=== PATIENT | male | born 1960 | race Caucasian/White ===

== ENCOUNTER 2019-07-31 23:00 | Inpatient (IN) | payer MEDICARE, MEDICAID, SELFPAY ==
[2019-07-31 23:10] VITALS: BP 130/83; PULSE 82; RESP 16; TEMP 36.8; O2SAT 94; BMI 22.4
--- NOTE | 2019-07-31 23:15 | ECG_ITS ---
Measurements Intervals [place] Rate: 84 P: 58 MI: 151 QRS: 78 QRSD: 86 T: 71 QT: 352 QTc: 416 SINUS RHYTHM POSSIBLE RIGHT VENTRICULAR CONDUCTION DELAY [RSR (QR) IN V1/V2] No previous ECG available for comparison Electronically Signed On 08-01-2019 20:53:13 CHIEF WRITER by Judi Banks M.D. [id number]
--- NOTE | 2019-07-31 23:15 | XRR_ITS ---
PROCEDURE INFORMATION: Exam: XR Chest, 1 View Exam date and time: 07/31/2019 11:35 PM Age: 58 years old Clinical indication: Chest pain TECHNIQUE: Imaging protocol: XR of the chest Views: 1 view. COMPARISON: No relevant prior studies available. FINDINGS: Lungs: There is hyperlucency in the upper lung zones compatible with COPD. Prior pulmonary granulomatous disease. Pleural space: No pleural effusion or pneumothorax. Heart/Mediastinum: The cardiac silhouette is not enlarged. The mediastinal contours are normal. Bones/joints: No acute osseous abnormality. Other findings: There is a left epicardial fat pad. XR/XR chest 1V portable [id number] IMPRESSION: COPD.
[2019-07-31 23:39] VITALS: BP 152/94; PULSE 77; RESP 16; TEMP 36.6; O2SAT 94
[2019-07-31 23:41] LABS: Basophils % 0.4 %; Eosinophils # 0.1 10^3/uL (0.0-0.8); Eosinophils % 2.4 %; Hemoglobin 14.7 g/dL (11.7-16.6); Lymphocytes # 1.8 10^3/uL (0.8-4.8); Lymphocytes % 32.7 %; Mean Corpuscular HGB Conc 33.4 g/dL (30.0-36.0); Mean Corpuscular Hemoglobin 28.9 pg (28.0-34.0); Mean Corpuscular Volume 86.6 fL (80-94); Mean Platelet Volume 11.6 fL (7.4-10.4); Monocytes # 0.3 10^3/uL (0.2-0.9); Monocytes % 4.9 %; Neutrophils # 3.3 10^3/uL (1.8-7.7); Neutrophils % 59.2 %; Nucleated Red Blood Cells % 0 %; Platelet Count 211 10^3/cmm (130-400); Red Blood Count 5.08 10^6/uL (4.1-5.3); Red Cell Distribution Width 12.1 % (12.1-15.1); White Blood Count 5.5 10^3/uL (4.0-10.0)
--- NOTE | 2019-07-31 23:43 | ED_ITS ---
HPI - Chest Pain General: Chief Complaint: Chest Pain Stated Complaint: CP Time Seen by Provider: 07/31/19 23:43 History of Present Illness: HPI narrative: Patient is a 58-year-old male comes to the ED with chest pain. He has a past medical history of diabetes, hyperlipidemia and also smokes about a half a pack a day. Patient's mother and father both had heart attacks. This is the first time he has ever experienced any chest pain and denies any shortness of breath or chest pain upon exertion before this occurrence. Patient says that chest pain started while he was sitting watching TV. He first felt the pain in his left arm and then it went to his chest. Arm pain as achy pain that was in the entire left arm. He also described a left arm tingling during the chest pain. Patient then took a dose of 325 mg aspirin. He called the EMS when they arrived they also gave him some nitroglycerin. After nitroglycerin patient's chest pain subsided and his left arm pain also significantly decreased. While here in the ED patient does not have any chest pain currently and has some mild left arm pain that he rates about 2 out of 10. He states he does have some arthritis in his wrist and hands and is unsure if mild pain in left arm is due to arthritis. He says the tingling sensation in the left arm is completely gone away. Associated symptoms: Deny abdominal pain, dyspnea, fever(s), nausea, palpitations or vomiting Review of Systems General: Reports: 10 or more systems reviewed and unremarkable except in HPI and below Const: Denies: fever or chills Eyes: Denies: change in vision or blurry vision ENMT: Denies: throat pain or nasal congestion Card: Denies: chest pain (no pain currently), palpitations, swelling of feet/ankles, shortness of breath on exertion or shortness of breath when lying down Resp: Reports: non-productive cough (chronic from smoking); Denies: shortness of breath GI: Denies: abdominal pain, nausea, vomiting, diarrhea, constipation or blood in stool : Denies: difficulty urinating, painful urination or blood in urine Neuro: Denies: numbness in extremities or weakness in extremities PFS ED PFSH: Statuses (acute, chronic, etc) shown below reflect problem list status as previously entered and may not be historically accurate Social History Smoking and tobacco status: current every day smoker Physical Exam Narrative: EXAM NARRATIVE: Patient is a 58-year-old male that is sitting comfortably in the exam room when I entered. He showing no signs of acute pain or distress. Is also showing no signs of respiratory distress. Const: COMMON NORMALS: oriented x3 HENMT: COMMON NORMALS: normocephalic HEAD & SCALP: normocephalic MOUTH: oral and palatal mucosa normal THROAT: posterior oropharynx normal and uvula midline Neck/C-Spine: COMMON NORMALS: supple GENERAL: Yes normal visual inspection Lymph: LYMPHATIC: no lymphadenopathy noted Resp: COMMON NORMALS: normal respiratory effort, no retractions, no use of accessory muscles and clear to auscultation bilaterally AUSCULTATION: clear to auscultation bilaterally Cardio: COMMON NORMALS: regular rate, regular rhythm, S1 normal heart sound, S2 normal heart sound, no gallops, no clicks, no murmurs and peripheral pulses 2+ throughout RATE: regular rate RHYTHM: regular rhythm HEART SOUNDS: S1 normal and S2 normal PERIPHERAL PULSES: pulses 2+ throughout GI: COMMON NORMALS: normal to inspection, nondistended, normoactive bowel sounds, soft to palpation, non-tender and no masses PALPATION: Yes soft : COMMON NORMALS: Yes no CVA tenderness BLADDER/KIDNEY EXAM: Yes no CVA tenderness Back/Pelvis: COMMON NORMALS: no CVA tenderness Extremity: COMMON NORMALS: normal to inspection, normal capillary refill and no pedal edema Neuro: COMMON NORMALS: oriented x3 and moves all extremities Skin: COMMON NORMALS: no rashes or lesions noted and no jaundice GENERAL SKIN EXAM: no rashes or lesions noted Course ED course: Patients HEART SCORE is 7, which puts patient at the high score range. Risk of MACE 50-65%. Patient risk factors current smoker, diabetes, hypercholesterolemia, mother and father both had MIs. Dr. Juarez was informed about the elevated troponin and he will be taking over admission of patient. Vital Signs: Vital signs: Vital Signs Temperature 97.8 F 07/31/19 23:39 Pulse Rate 69 08/01/19 01:30 Respiratory Rate 16 08/01/19 01:30 Blood Pressure 144/86 08/01/19 01:30 Pulse Oximetry 93 08/01/19 01:30 MDM - Chest Pain MDM Narrative: Medical decision making narrative: Patient is a 58-year-old male comes to the ED with chest pain. Lab Data: Attestation: I reviewed the patient's lab results. Labs: Lab Results 07/31/19 07/31/19 07/31/19 Range/Units 23:22 23:22 23:22 WBC 5.5 (4.0-10.0) 10^3/ uL RBC 5.08 (4.1-5.3) 10^6/u L Hgb 14.7 (11.7-16.6) g/dL Hct 44.0 (42.0-52.0) % MCV 86.6 (80-94) fL MCH 28.9 (28.0-34.0) pg MCHC 33.4 (30.0-36.0) g/dL RDW 12.1 (12.1-15.1) % Plt Count 211 (130-400) 10^3/c mm MPV 11.6 H (7.4-10.4) fL Neut % (Auto) 59.2 % Lymph % (Auto) 32.7 % [place] % (Auto) 4.9 % Eos % (Auto) 2.4 % Baso % (Auto) 0.4 % Neut # (Auto) 3.3 (1.8-7.7) 10^3/u L Lymph # (Auto) 1.8 (0.8-4.8) 10^3/u L [place] # (Auto) 0.3 (0.2-0.9) 10^3/u L Eos # (Auto) 0.1 (0.0-0.8) 10^3/u L Baso # (Auto) 0.0 (0.0-0.1) 10^3/u L Nucleated RBC % (a uto) 0 % Nucleated RBCs # 0.0 /100WBC PT 12.50 (10.5-13.3) SECO NDS INR 0.91 (0.8-1.2) APTT 29.0 (23.9-36.7) SECO NDS Sodium 133 L (136-145) mmol/L Potassium 4.7 (3.5-5.1) mmol/L Chloride 96 L (98-107) mmol/L Carbon Dioxide 25 (22-29) mmol/L Anion Gap 16.7 (5-19) BUN 20 (6-20) mg/dL Creatinine 1.0 (0.7-1.2) mg/dL GFR Calculation 76.5 L (90-130) mL/min Glucose 400 H (65-115) mg/dL Calcium 9.7 (8.5-10.5) mg/dL Total Bilirubin 0.2 (0.15-1.2) mg/dL AST 5 (0-40) U/L ALT < 5 (0-41) U/L Alkaline Phosphata se 105 (40-130) IU/L Troponin T Baselin e (0-15) ng/mL Troponin T 120 Min [place] (0-15) ng/mL Delta Troponin T (0-10) ABS# NT-Pro-B Natriuret Pep 31 (0-125) pg/mL Total Protein 7.1 (6.6-8.7) g/dL Albumin 4.1 (3.5-5.2) g/dL Globulin 3.0 (1.3-4.6) g/dL 07/31/19 08/01/19 Range/Units 23:22 01:15 WBC (4.0-10.0) 10^3/ uL RBC (4.1-5.3) 10^6/u L Hgb (11.7-16.6) g/dL Hct (42.0-52.0) % MCV (80-94) fL MCH (28.0-34.0) pg MCHC (30.0-36.0) g/dL RDW (12.1-15.1) % Plt Count (130-400) 10^3/c mm MPV (7.4-10.4) fL Neut % (Auto) % Lymph % (Auto) % [place] % (Auto) % Eos % (Auto) % Baso % (Auto) % Neut # (Auto) (1.8-7.7) 10^3/u L Lymph # (Auto) (0.8-4.8) 10^3/u L [place] # (Auto) (0.2-0.9) 10^3/u L Eos # (Auto) (0.0-0.8) 10^3/u L Baso # (Auto) (0.0-0.1) 10^3/u L Nucleated RBC % (a uto) % Nucleated RBCs # /100WBC PT (10.5-13.3) SECO NDS INR (0.8-1.2) APTT (23.9-36.7) SECO NDS Sodium (136-145) mmol/L Potassium (3.5-5.1) mmol/L Chloride (98-107) mmol/L Carbon Dioxide (22-29) mmol/L Anion Gap (5-19) BUN (6-20) mg/dL Creatinine (0.7-1.2) mg/dL GFR Calculation (90-130) mL/min Glucose (65-115) mg/dL Calcium (8.5-10.5) mg/dL Total Bilirubin (0.15-1.2) mg/dL AST (0-40) U/L ALT (0-41) U/L Alkaline Phosphata se (40-130) IU/L Troponin T Baselin e 54 H (0-15) ng/mL Troponin T 120 Min [place] 98.16 H (0-15) ng/mL Delta Troponin T 44.16 H* (0-10) ABS# NT-Pro-B Natriuret Pep (0-125) pg/mL Total Protein (6.6-8.7) g/dL Albumin (3.5-5.2) g/dL Globulin (1.3-4.6) g/dL EKG Data^: EKG 1: Attestation: I personally reviewed and interpreted this EKG as follows: EKG interpretation date: 08/01/19 Interpretation: Normal sinus rhythm, 70 bpm, P waves present, no ST depression or elevation seen. Possible right bundle branch block seen in V1. Computer generated interpretation: Sinus rhythm, 70 bpm, possible right ventricular conduction in leads V1 and V2 Discharge Plan Discharge Admit Provider: Lisa Tucker Coding Level of Care Code ED [employer] Selector for Chg Fwd Exam Problem Focused
[2019-07-31 23:46] LABS: INR 0.91 (0.8-1.2)
--- NOTE | 2019-07-31 23:51 | PC.NURSE ---
Received patient to Er with complaint of chest pain since about 2200 also pain in his left arm. Patient states that EMS gave him asa, and a sl nitro that relieved his cp. patient denies any other symptoms.
[2019-07-31 23:55] LABS: Troponin(5th) Baseline 54 ng/mL (0-15)
[2019-08-01] VITALS (9 sets, daily range): BP systolic 102–150; BP diastolic 60–86; PULSE 63–75; RESP 12–28; TEMP 36.6–36.9; O2SAT 91–96
[2019-08-01 00:04] LABS: Albumin Level 4.1 g/dL (3.5-5.2); Alkaline Phosphatase 105 IU/L (40-130); Anion Gap 16.7 (5-19); Blood Urea Nitrogen 20 mg/dL (6-20); Calcium 9.7 mg/dL (8.5-10.5); Carbon Dioxide 25 mmol/L (22-29); Chloride 96 mmol/L (98-107); Glomerular Filtration Rate 76.5 mL/min (90-130); Glucose 400 mg/dL (65-115); NT Pro B Type Natriuretic Pept 31 pg/mL (0-125); Potassium 4.7 mmol/L (3.5-5.1); Sodium 133 mmol/L (136-145); Total Bilirubin 0.2 mg/dL (0.15-1.2); Total Protein 7.1 g/dL (6.6-8.7)
[2019-08-01 00:16] LABS: Alanine Aminotransferase < 5 U/L (0-41); Aspartate Amino Transferase 5 U/L (0-40)
--- NOTE | 2019-08-01 01:15 | ECG_ITS ---
Measurements Intervals [place] Rate: 74 P: 56 [place]: 144 QRS: 78 QRSD: 88 T: 61 QT: 372 QTc: 414 SINUS RHYTHM POSSIBLE RIGHT VENTRICULAR CONDUCTION DELAY [RSR (QR) IN V1/V2] INTERPRETATION BASED ON A DEFAULT AGE OF 40 YEARS No previous ECG available for comparison Electronically Signed On 08-01-2019 20:57:12 COATING MIXER TENDER by Judi Banks M.D. [id number] f
[2019-08-01 01:44] LABS: Troponin 5 2HR 98.16 ng/mL (0-15)
[2019-08-01] MEDS: sodium chloride 0.9% 1,000 ML 750 ML IV (01:49)
[2019-08-01 01:57] LABS: Troponin 5 2HR Delta 44.16 ABS# (0-10)
[2019-08-01] MEDS: heparin 5,000 unit/mL INJ 1 mL 4000 UNIT IVP (02:18)
[2019-08-01] MEDS: heparin drip 25,000 UNIT/500 ML PREMIX 14.7 UNIT IV (02:19)
--- NOTE | 2019-08-01 02:57 | PC.NURSE ---
Patient to be admitted to room 112-2, report called to Karma VERA. Patient taken to floor with ivf infusing.
[2019-08-01 05:01] LABS: Platelet Count 196 10^3/cmm (130-400)
--- NOTE | 2019-08-01 05:15 | ECG_ITS ---
Measurements Intervals [place] Rate: 66 P: 59 FL: 150 QRS: 79 QRSD: 94 T: 76 QT: 397 QTc: 418 SINUS RHYTHM INCOMPLETE RIGHT BUNDLE BRANCH BLOCK [90+ ms QRS DURATION, TERMINAL R IN V1/V2, 40+ ms S IN I/aVL/V4/V5/V6] No previous ECG available for comparison Electronically Signed On 08-01-2019 20:58:43 COMMUNICATIONS AGENT by Judi Banks M.D. [id number]
[2019-08-01 05:28] LABS: Magnesium 1.8 mg/dL (1.7-2.3); Phosphorus 2.6 mg/dL (2.5-4.5)
[2019-08-01 05:29] LABS: Chol HDL Ratio 11.03 mg/dL (1.0-5.00); Cholesterol 342 mg/dL (0-200); HDL Cholesterol 31 mg/dL (60-100)
[2019-08-01 05:48] LABS: Triglycerides 1227 mg/dL (0-150)
[2019-08-01 06:10] LABS: Glucose Point of Care 241 mg/dL (70-110)
[2019-08-01 06:17] LABS: LDL Cholesterol Direct 121 mg/dL (0-100)
--- NOTE | 2019-08-01 07:09 | PC.NURSE ---
HEPARIN DRIP STARTED IN ED, HOWEVER, NO PAPERWORK ARRIVED WITH THIS PATIENT INCLUDING THE HEPARIN DRIP PROTOCOL. NEW PAPER WORK STARTED FOR PATIENT. NO INITIAL BOLUS GIVEN DUE TO THE BOLUS BEING GIVEN IN THE ED. WILL FOLLOW HEPARIN DRIP PROTOCOL FOLLOWING NEXT PTT AT 0815.
[2019-08-01 08:51] LABS: Partial Thromboplastin Time 58.4 SECONDS (23.9-36.7)
--- NOTE | 2019-08-01 08:56 | PC.NURSE ---
HEPARIN GTT RATE RUNNING AT 14.7ML/HR. PER PROTOCOL, RATE SHOULD BE 18ML/HR. HOWEVER, AT 6 HOUR CHECK, PATIENT'S PTT IS THERAPEUTIC. WILL KEEP RATE AT 14.7ML/HR. PHYSICIAN NOTIFIED.
--- NOTE | 2019-08-01 09:46 | P.HP_ITS ---
Providers/Chief Complaint Admitting Physician: Jolene Ridley DO Primary Care Provider: Dr. Navas Chief Complaint: CP History of Present Illness Phong Patino is a 58 year old male with a past medical history of hypertension, hyperlipidemia and diabetes that presented to the emergency department for chest pain. Patient reported that he was sitting last night watching a movie at ap proximately 8:52 PM and began having heaviness in the center of his chest that radiated to his left arm. He stated that he took some aspirin and nitroglycerin and pain resolved. He came into the ER for further evaluation and treatment and was admitted due to concern for non-ST elevation [place]. He denies any recent fever, no sick contacts, no increase in cough or sputum production. Review of Systems Const: Denies: fever or chills Eyes: Denies: change in vision ENMT: Denies: nasal congestion Card: Reports: chest pain; Denies: palpitations or edema Resp: Denies: shortness of breath, productive cough or coughing up blood GI: Denies: abdominal pain, nausea, vomiting, diarrhea, constipation, blood in stool or black tarry stool : Denies: painful urination or blood in urine Musc: Denies: extremity pain or muscle cramps Skin/Breast: Denies: rash or new lesion Neuro: Denies: headache or dizziness Psych: Denies: anxiety or depression Endo: Denies: excessive urination or hot flashes [place]/Lymph: Denies: easy bruising or easy bleeding Medications/Allergies Home Medications Medication Instructions Recorded Confirmed Last Taken Type Levemir FlexTouch U-100 Insuln 50 unit SUBCUT DAILY 08/01/19 08/01/19 Unknown History Trulicity See Rx Instructions .ROUTE .COMPLEX 08/01/19 08/01/19 07/25/19 08:00 History aspirin 81 mg PO DAILY 08/01/19 08/01/19 Unknown History bupropion HCl 150 mg PO QAM 08/01/19 08/01/19 Unknown History cyanocobalamin (vitamin B-12) 500 mcg PO DAILY 08/01/19 08/01/19 Unknown History [Vitamin B-12] ezetimibe 10 mg PO DAILY 08/01/19 08/01/19 Unknown History insulin lispro [Humalog KwikPen 10 unit SUBCUT TID 08/01/19 08/01/19 Unknown History Insulin] omega-3 fatty acids 2,000 mg PO BID 08/01/19 08/01/19 Unknown History rosuvastatin 40 mg PO DAILY 08/01/19 08/01/19 Unknown History Allergies Allergy/AdvReac Type Severity Reaction Status Date / Time No Known Allergies Allergy Verified 08/01/19 01:18 PFSH Acute PFSH: Statuses (acute, chronic, etc) shown below reflect problem list status as previously entered and may not be historically accurate Medical History (Updated 08/01/19 @ 09:52 by Jolene Ridley DO) Diabetes Hyperlipidemia Hypertension Migraine headache Tobacco abuse Surgical History (Updated 08/01/19 @ 09:50 by Jolene Ridley DO) History of orthopedic surgery L elbow surgery Family History (Updated 08/01/19 @ 09:50 by Jolene Ridley DO) Father CAD (coronary artery disease) Mother CAD (coronary artery disease) Social History Smoking and tobacco status: current every day smoker Vitals/I&O/Wt Last Vital Signs Temp 97.8 F 08/01/19 08:00 Pulse 68 08/01/19 08:00 Resp 12 08/01/19 08:00 BP 113/72 08/01/19 08:00 Pulse Ox 94 08/01/19 08:00 07/31/19 08/01/19 08/01/19 22:59 06:59 14:59 Output Total 0 / 0 Balance 0 / 0 Weight last 48 hrs Weight 64.229 kg Weight 61.235 kg Physical Exam Const: COMMON NORMALS: oriented x3 and alert GENERAL APPEARANCE: cooperative ORIENTATION/CONSCIOUSNESS: Yes awake, Yes oriented to person, Yes oriented to place and Yes oriented to time HENMT: COMMON NORMALS: normocephalic and head/scalp atraumatic HEAD & SCALP: normocephalic and atraumatic Eye: COMMON NORMALS: PERRL PUPIL: Yes PERRL Neck/C-Spine: COMMON NORMALS: supple GENERAL: Yes normal visual inspection Resp: OTHER: Respirations even and unlabored, diminished breath sounds bilaterally with prolonged expiratory phase, no wheezing or rhonchi Cardio: COMMON NORMALS: regular rate, regular rhythm and no murmurs RATE: regular rate RHYTHM: regular rhythm GI: COMMON NORMALS: soft to palpation and non-tender INSPECTION: No abdominal distension AUSCULTATION: Yes normoactive bowel sounds PALPATION: Yes soft Extremity: COMMON NORMALS: no clubbing, cyanosis or edema and no calf ten derness Neuro: COMMON NORMALS: oriented x3, CN's II-XII intact bilaterally, moves all extremities and no focal motor deficits SENSORIUM/ORIENTATION: Yes alert, Yes oriented to person, Yes oriented to place and Yes oriented to time SPEECH: speech normal Psych: COMMON NORMALS: mental status grossly normal and cooperative Skin: COMMON NORMALS: no rashes or lesions noted GENERAL SKIN EXAM: no rashes or lesions noted Data : 08/01/19 04:10 07/31/19 23:22 CXR: I personally reviewed and interpreted this imaging study as follows: My impression: No acute cardiopulmonary process, changes of chronic COPD A&P Assessment and plan (1) NSTEMI (non-ST elevated myocardial infarction): Admit to cardiac stepdown unit Serial EKG and troponin Monitoring on telemetry Heparin drip started, started on aspirin, statin and metoprolol Cardiology, Dr. Kumari consulted, appreciate recommendations and assistance in patient's care. Patient is chest pain-free at this time Status: Acute Code(s): I21.4 - Non-ST elevation (NSTEMI) myocardial infarction (2) Diabetes: Patient is on chronic insulin therapy On Levemir 50 units at bedtime, will continue but decrease dose due to acute ho spitalization and do not wish for him to become hypoglycemic. He is also on Trulicity at home, holding at this time, will continue on sliding scale insulin as needed We will check hemoglobin A1c Status: Acute Code(s): E11.9 - Type 2 diabetes mellitus without complications (3) Hyperlipidemia: Significant hyperlipidemia and hypertriglyceridemia Will start on high intensity statin Status: Acute Code(s): E78.5 - Hyperlipidemia, unspecified (4) Hypertension: Blood pressure well controlled at this time, will continue on metoprolol Status: Acute Code(s): I10 - Essential (primary) hypertension (5) Tobacco abuse: Strongly encourage cessation, nicotine patch as needed Status: Acute Code(s): Z72.0 - Tobacco use Additional A&P Information DVT prophylaxis: On heparin drip, no further prophylaxis indicated Diet: Cardiac, carbohydrate consistent, n.p.o. at midnight CODE STATUS: Full code Attestations Medical Necessity Statement*: Patient requires hospitalization due to non-ST elevation [place], expected stay greater than 2 midnights Coding Level of Care Code Acute Travel Registered Nurse [facility] for [facility] Fwd Diagnoses NSTEMI (non-ST elevated myocardial infarction) I21.4 Diabetes E11.9 Hyperlipidemia E78.5 Hypertension I10 Tobacco abuse Z72.0
[2019-08-01] MEDS: aspirin 81 mg Chew Tablet 162 MG PO (09:50)
[2019-08-01] MEDS: metoprolol tartrate 25 mg Tablet PO ×2 (09:50→21:15)
--- NOTE | 2019-08-01 10:22 | PC.NURSE ---
MEDICATIONS, INCLUDING INSULIN, ADMINISTERED LATE PER DR. GAGE.
--- NOTE | 2019-08-01 10:28 | PC.CHAP ---
Pastoral Care Encounter/Spiritual Assessment Type of Contact [] Declined jail guard visit [] Patient/Family/Request visit [] Outpatient visit [] Follow-up visit [] Physician referral [] Code/Alert [x] Routine visit [] Staff referral [] Actively dying [] Patient sleeping [] Family support [] [] Out of room [] Palliative care [] [] Receiving care in room [] Pre-surgical visit [] Trauma [] Long length of stay [] ICU visit [] Other: Relational/Emotional Strength [] Patient feels connected with others/family/visitors/staff [] Distress [] Loneliness/isolation [] Abandonment Spirituality of Patient [] Person of Sugey [] Attends Jain of their [place]ugey [x] Believes in Prayer [] Reads Bible or Sikh materials [] There are Spiritual issues to be addressed Residential Plumber Interventions [x] Prayer [] Active listening [] Non-anxious presence [] Spiritual/emotional support [] Crisis/trauma care [] Spiritual counseling [] Bereavement support [] Provided bereavement packet [] Provided Bible/devotional materials [] Provided toy/stuffed animal, coloring book to patient or family member [] Provided Communion [] Anointing/[place] [] Salvation [] Completed spiritual assessment [] Other: Impact on Illness or Injury [] Angry [] Fearful [] Anxious [] Often cries [] Exhaustion [] Unable to work [] Unable to attend latter day [] Unable to walk/stand [] Unable to read [] Unable to drive [] Unable to eat/drink [] Unable to sleep [] Unable to be with family [] Patient intubated [] Other: Summary Patient resting well, had no needs. Time spent with patient 5min
[2019-08-01 11:49] LABS: Glucose Point of Care 416 mg/dL (70-110)
[2019-08-01 15:21] LABS: Partial Thromboplastin Time 42.8 SECONDS (23.9-36.7)
[2019-08-01] MEDS: heparin 5,000 unit/mL INJ 1 mL IV (15:53)
[2019-08-01 16:51] LABS: Glucose Point of Care 206 mg/dL (70-110)
[2019-08-01 20:06] LABS: Glucose Point of Care 299 mg/dL (70-110)
--- NOTE | 2019-08-01 20:13 | P.CONIM_ITS ---
Providers/Reason For Consult Consulting Physican/Specialty*: Cardiology Reason for Consult*: Non-ST elevation [place] Requesting Physcian: Dr. Ridley Attending Physician: Jolene Ridley, History of Present Illness History of Present Illness Phong Patino is a 58 year old male Past medical history significant for [id number] of continuous tobacco abuse, Diabetes mellitus, hypertriglyceridemia uncontrolled, history of drug abuse in the past presented last night with chest pain for 2-3 hour duration. According to the patient while watching TV around 8:30 PM he started having chest pain started from the left arm when it got worse and did not get relief he called EMS and came came to the ER. He was ruled in for acute coronary syndrome. He was treated as per ACS protocol. He became chest pain-free. He was started on aspirin statin beta sumi. I have detail discussion with the patient regarding coronary angiogram which we'll try to perform tomorrow around noon or in the afternoon but over time is available since he is stable. All risks benefits and alternative for the procedure were explained. Patient agrees to it. Review of Systems General: Reports: 10 or more systems reviewed and unremarkable except in HPI and below Const: Denies: fever or chills Eyes: Denies: change in vision or blurry vision ENMT: Denies: throat pain or nasal congestion Card: Reports: chest pain; Denies: palpitations, edema, swelling of feet/ankles, shortness of breath on exertion or shortness of breath when lying down Resp: Reports: non-productive cough (chronic from smoking); Denies: shortness of breath, productive cough or coughing up blood GI: Denies: abdominal pain, nausea, vomiting, diarrhea, constipation, blood in stool or black tarry stool : Denies: difficulty urinating, painful urination or blood in urine Musc: Denies: extremity pain or muscle cramps Skin/Breast: Denies: rash or new lesion Neuro: Denies: headache, numbness in extremities, weakness in extremities or dizziness Psych: Denies: anxiety or depression Endo: Denies: excessive urination or hot flashes Zana/Lymph: Denies: easy bruising or easy bleeding Meds/Allergies Home Medications and Allergies Home Medications Medication Instructions Recorded Confirmed Type Levemir FlexTouch U-100 Insuln 50 unit SUBCUT DAILY 08/01/19 08/01/19 History Trulicity See Rx Instructions .ROUTE .COMPLEX 08/01/19 08/01/19 History aspirin 81 mg PO DAILY 08/01/19 08/01/19 History bupropion HCl 150 mg PO QAM 08/01/19 08/01/19 History cyanocobalamin (vitamin B-12) 500 mcg PO DAILY 08/01/19 08/01/19 History [Vitamin B-12] ezetimibe 10 mg PO DAILY 08/01/19 08/01/19 History insulin lispro [Humalog KwikPen 10 unit SUBCUT TID 08/01/19 08/01/19 History Insulin] omega-3 fatty acids 2,000 mg PO BID 08/01/19 08/01/19 History rosuvastatin 40 mg PO DAILY 08/01/19 08/01/19 History Allergies Allergy/AdvReac Type Severity Reaction Status Date / Time No Known Allergies Allergy Verified 08/01/19 01:18 Current Medications Current Medications Generic Name Dose Route Start Last Admin Trade Name Freq PRN Reason Stop Dose Admin Aspirin 162 mg 08/01/19 09:00 08/01/19 09:50 Aspirin Chewable PO 162 mg DAILY YUNIOR Administration Atorvastatin Calcium 40 mg 08/01/19 03:15 08/01/19 04:47 Lipitor PO Not Given BEDTIME YUNIOR Heparin Sodium (Beef Lung) 0 unit 08/01/19 03:09 08/01/19 15:53 Heparin IV 2,600 unit PRN PRN Administration Heparin weight-base protocol Protocol Heparin Sodium/Sodium Chloride 25,000 unit in 500 mls @ 14.696 mls/hr 08/01/19 02:00 08/01/19 02:19 Heparin Drip IV 12 unit/kg/hr .Q24H YUNIOR 14.7 mls/hr Administration 12 UNIT/KG/HR Insulin Aspart 0 unit 08/01/19 08:00 08/01/19 18:27 Novolog SUBCUT 4 unit WM&BEDTIME YUNIOR Administration Protocol Metoprolol Tartrate 25 mg 08/01/19 09:00 08/01/19 09:50 Lopressor PO 25 mg 09,21 YUNIOR Administration PFSH Acute PFSH: Statuses (acute, chronic, etc) shown below reflect problem list status as previously entered and may not be historically accurate Medical History Diabetes (Acute) Hyperlipidemia (Acute) Hypertension (Acute) Migraine headache (Acute) Tobacco abuse (Acute) Surgical History History of orthopedic surgery (Acute) L elbow surgery Family History Father CAD (coronary artery disease) Mother CAD (coronary artery disease) Social History Smoking and tobacco status: current every day smoker Vitals/I&O/Wt Last Vital Signs Temp 98.0 F 08/01/19 15:51 Pulse 67 08/01/19 15:51 Resp 18 08/01/19 15:51 BP 105/71 08/01/19 15:51 Pulse Ox 92 08/01/19 15:51 08/01/19 08/01/19 08/01/19 06:59 14:59 22:59 Intake Total 240 / 240 Output Total 0 / 0 Balance 0 / 0 240 / 240 Weight last 48 hrs Weight 141 lb 9.6 oz Weight 135 lb Physical Exam Narrative: EXAM NARRATIVE: GENERAL: Patient is alert, awake and oriented x3. NECK: No jugular vein distension. HEENT: No cyanosis. No icterus. No pallor. HEART: Regular S1 and S2. No murmur, rub or gallop. LUNGS: Clear to auscultate bilaterally. ABDOMEN: Soft, nontender and nondistended. Positive bowel sounds. No guarding, rebound or tenderness. CENTRAL NERVOUS SYSTEM: Grossly nonfocal. EXTREMITIES: Lower extremities without edema bilaterally. A&P Assessment and plan (1) NSTEMI (non-ST elevated myocardial infarction): Patient Suffered non-ST elevation VT currently he is chest pain-free.Risk factor modification has been already started. We will proceed with coronary angiogram tomorrow and PCI if indicated. I will load him with Plavix tonight. Further plan will be advised as per progress of the patient. Status: Acute Code(s): I21.4 - Non-ST elevation (NSTEMI) myocardial infarction (2) Diabetes: As per medicine Status: Acute Code(s): E11.9 - Type 2 diabetes mellitus without complications (3) Hyperlipidemia: Patient already has been started on statin hopefully with the use of [place] fatty acid and Meticulous control of diabetes triglyceride will improve Status: Acute Code(s): E78.5 - Hyperlipidemia, unspecified (4) Hypertension: Currently stable and well controlled. Status: Acute Code(s): I10 - Essential (primary) hypertension (5) Tobacco abuse: Advised to quit smoking. Status: Acute Code(s): Z72.0 - Tobacco use Consult Attestations Medical Necessity Statement: Patient requires continuation hospitalization. I'm expecting his stay to cross more than 2 midnights for non-ST elevation VT. Coding Level of Care Code New Pt Acute Registered Nurse Renal for g Fwd Patient Type New History Detailed Exam Detailed Medical Decision Making Moderate Complexity Diagnoses NSTEMI (non-ST elevated myocardial infarction) I21.4 Diabetes E11.9 Hyperlipidemia E78.5 Hypertension I10 Tobacco abuse Z72.0
[2019-08-01] MEDS: atorvastatin 40 mg Tablet PO (21:15)
[2019-08-01] MEDS: clopidogrel 300 mg Tablet PO (22:25)
[2019-08-01 22:30] LABS: Partial Thromboplastin Time 66.4 SECONDS (23.9-36.7)
[2019-08-02] VITALS (28 sets, daily range): BP systolic 89–123; BP diastolic 58–76; PULSE 55–69; RESP 10–30; TEMP 36.4–37.2; O2SAT 92–99; BMI 23.6
[2019-08-02] MEDS: acetaminophen 325 mg Tablet 650 MG PO (00:32)
[2019-08-02 04:10] LABS: Partial Thromboplastin Time 73.3 SECONDS (23.9-36.7)
[2019-08-02 04:23] LABS: Estmated Average Glucose 263; Hemoglobin A1C 10.8 % (4.0-6.0)
[2019-08-02 04:24] LABS: Anion Gap 14.7 (5-19); Blood Urea Nitrogen 14 mg/dL (6-20); Calcium 9.8 mg/dL (8.5-10.5); Carbon Dioxide 25 mmol/L (22-29); Chloride 100 mmol/L (98-107); Chol HDL Ratio 8.58 mg/dL (1.0-5.00); Cholesterol 283 mg/dL (0-200); Glomerular Filtration Rate 76.5 mL/min (90-130); Glucose 182 mg/dL (65-115); HDL Cholesterol 33 mg/dL (60-100); Magnesium 1.8 mg/dL (1.7-2.3); Osmolality Calculated 283 mOsm/kg (285-295); Phosphorus 2.8 mg/dL (2.5-4.5); Potassium 3.7 mmol/L (3.5-5.1); Sodium 136 mmol/L (136-145); Triglycerides 860 mg/dL (0-150)
[2019-08-02 04:57] LABS: LDL Cholesterol Direct 143 mg/dL (0-100)
[2019-08-02] MEDS: buPROPion XL (24 HR) 150 mg Tablet PO (04:59)
[2019-08-02 06:21] LABS: Glucose Point of Care 127 mg/dL (70-110)
[2019-08-02] MEDS: aspirin 81 mg Chew Tablet 162 MG PO (08:26)
[2019-08-02] MEDS: metoprolol tartrate 25 mg Tablet PO ×2 (08:26→21:00)
[2019-08-02] MEDS: ezetimibe 10 mg Tablet PO (08:30)
--- NOTE | 2019-08-02 08:43 | PC.NURSE ---
MEDICATION ZETIA UNABLE TO SCAN. CALLED PHARMACIST, ZELDA, WHO ASKED NURSE TO OVERRIDE THIS DOSE THAT MEDICATION WAS NOT ENTERED INTO THE SYSTEM APPROPRIATELY YET. MEDICATION VERIFIED RIGHT DOSE, TIME, ROUTE AND FREQUENCY. ADMINISTERED 10MG OF ZETIA.
[2019-08-02] MEDS: heparin drip 25,000 UNIT/500 ML PREMIX 14.7 UNIT IV (08:57)
[2019-08-02 10:25] LABS: Partial Thromboplastin Time 72.6 SECONDS (23.9-36.7)
[2019-08-02] MEDS: diphenhydrAMINE 50 mg Capsule PO (11:04)
[2019-08-02] MEDS: sodium chloride 0.9% 1,000 ML 50 ML IV (11:04)
[2019-08-02 11:24] LABS: Glucose Point of Care 154 mg/dL (70-110)
--- NOTE | 2019-08-02 11:30 | XACV_ITS ---
Exam Room: 112 Ht: 165 cm Wt: 64 kg BSA: 1.73 m2 Gender: Male : 1960 Exam Priority: Routine Procedure(s): Procedure Description: Diagnostic procedure Procedure Description: Left Heart Catheterization Diagnostic Cath Status: Elective Diagnostic Findings LM has 0% stenosis. mLAD: Moderate 65% stenosis, KAYDEN: 3 flow. CIRC AV: Severe 90% stenosis, KAYDEN: 3 flow. First Obtuse Marginal Branch Segment: Severe 95% stenosis, KAYDEN: 2 flow. pRCA to mRCA: Moderate 70% stenosis, KAYDEN: 3 flow. Coronary angiography shows left dominance. PCI Status: Urgent PCI Indication: NSTE - ACS Interventional Findings First Obtuse Marginal Branch Segment: 95% stenosis treated with AB MINI TREK 2.00X8 RX BALLOON, ZAC [place] TERRY 2.25X15 BROOK, and MDJm JIMENEZ EUPHORA RX [id number] BALLOON. 0% residual stenosis, KAYDEN: 3 flow. After somewhat difficulty obtuse marginal 1 lesion which is highly calcified lesion was crossed with the help of run-through wire. Balloon angioplasty followed by drug-eluting stent was placed jailing the kailyn ove circumflex. Please note that kail[place] ove circumflex is a small caliber subtotally occluded vessel in the distal segment . Stent was then postdilated with noncompliant balloon as defined above. Jailed kailyn ove circumflex was then crossed with the wire however we were not able to cross with the balloon since flow was restored in the kailyn ove circumflex we did not proceed further. Good angiographic result with KAYDEN-3 flow was restored in both obtuse marginal and kailyn ove circumflex. Conclusions There is severe coronary artery disease with three vessel disease. First Obtuse Marginal Branch Segment was treated with two Balloon and Drug Eluting Stent. Recommendations 1-Return to inpatient for close monitoring and routine cath care2-Risk factor modification for secondary prevention3-Statin and aspirin 81 mg life-long, if tolerated4-Patient was pre-loaded with 600 mg of Plavix, continue Plavix 75mg p.o. daily for at least one year. We will assess at the end of one year again to continue if further or not5-Continue optimal medical management6-Follow up with Dr. Kumari in four weeks and your primary care in 10 days. Diagnostic RX Recommendation: PCI w/o planned CABG Pressures Phase:Rest AO : 123 mmHg / 70 mmHg ( 91 mmHg ) @ 6:37:00 AM Clinical Evaluation EBL: 5mL-10mL Procedural Details Procedure Consent Obtained. Pre-Procedure Time Out. Identified patient by full name and date of as verbalized by the patient/guarantor. Does the consent match the physician's order: Yes. Accurate & Complete Informed Consent: Yes. Inpatient/Outpatient History & Physical on Chart: Yes. If H&P is completed, is and addenduem needed: N/A; If yes, is the addendum complete: N/A. Visualize and Verify Site with Patient/Guarantor: N/A. Relevant Radiology Images available: N/A. Pre-op teaching completed and patient verbalized understanding. The risks, benefits, and alternatives of sedation and/or procedure were discussed by physician. The patient agrees to continue. Procedure started. Correct patient, site and procedure confirmed by cath team. PERRLA. Strong, equal hand customer service engineer bilaterally. Lungs clear x 5 lobes. IV Site on Arrival: 20 gauge in the left anticubital. Pre Procedural Pulses: bilateral dorsalis pedis was 3+. Pre Procedural Pulses: bilateral posterior tibial was 3+. Pre Procedural Pulses: bilateral radial was 3+. IV Site on Arrival: 20 gauge in the right anticubital. Oxygen started at 2liters/min via nasal canula. bilateral groins was prepped with chloroprep then draped in the usual sterile fashion. right radial was prepped with chloroprep then draped in the usual sterile fashion. Physician notified. Baseline sample Acquired. HR: 49 BPM. Physician arrived. Physician scrubbed in. Immediate Pre-Procedure Time Out. Correct Patient: Yes; Correct Procedure: Yes; Correct Site: Yes; Correct Patient Position: Yes; Correct Supplies: Yes; Dried Flammable Prep: Yes; Blood Products Available: N/A;. Lidocaine 1% infiltrated to the right radial. Arterial access obtained. A 5 [place] TIG catheter in over wire. Multiple views taken of left coronary artery. Catheter redirected to the RCA. Multiple views taken of right coronary artery. Catheter out. CLS 3 guide inserted. ACT drawn. Results 106 seconds. Therapeutic limits - pre-heparin administration 90-150 seconds and monitoring heparin during a vascular procedure >250 seconds. [place] guidewire was advanced through the guide catheter to lesion in the mid Circ. [place] guidewire was advanced through the guide catheter to lesion in the OM. both cougar wires out. cougar wire inserted and unable to reach OM. cougar wire out. Runthrough guidewire was advanced through the guide catheter to lesion in the OM. Inflation number : 1 A AB MINI TREK 2.00X8 RX BALLOON was prepped and advanced across the 1st Ob Leah , then inflated to 8 EDUARDO for 0:45 seconds. Balloon out. Inflation Number : 2 A MDT R TERRY 2.25X15 BROOK -Lot Number# [id number] Exp 09/23/2020_ was prepped and advanced across the 1st Ob Leah. The stent was deployed at EDUARDO for 0:28 seconds. Stent balloon out over wire. Inflation number : 3 A MDT NC EUPHORA RX [id number] BALLOON was prepped and advanced across the 1st Ob Leah , then inflated to 8 EDUARDO for 1:10 seconds. Inflation number: 4 The MDT NC EUPHORA RX [id number] BALLOON was reinflated across the 1st Ob Leah, to 10 EDUARDO for 0:16 seconds. checking results. guide out. ACT drawn. Results 193 seconds. Therapeutic limits - pre-heparin administration 90-150 seconds and monitoring heparin during a vascular procedure >250 seconds. TR band placed. Hemostasis obtained. Post Procedure: Pulses reassessed and unchanged. PERRLA. Strong, equal hand customer service engineer bilaterally. No VTE prophylaxis required. Medication's Wasted: Lidocaine 1% = 18 mL. Total IV fluids: 50 mL. Contrast type used: Omnipaque 300 mgI/mL, 500 mL bottle. Contrast Material : Omnipaque 417 ml. Post-op diagnosis: NSTEMI severe disease of OM. Complications: none. Estimated blood loss: 5mL-10mL. A TR Band was successful obtaining hemostatsis at the Right Radial artery insertion site. Medication's Wasted: Heparin = 3000 units. [facility] Clinical Fraility Score: 3: Managing Well. Filbert Grower Indications: ACS > 24 hours. Chest Pain Symptom Assessment: Typical Angina Symptoms. PCI Indication: NSTE. Cardiovascular Instability: No. Procedure completed. Patient transferred by wheelchair to 1st floor. Vital chart was stopped. Site: Right Radial artery Sheath Size: 6 Fr Hemostasis Method: TR Band Hemostasis Success: Successful Procedure Medications Start: 12:18 PM Stop: 12:18 PM Medication: Versed Amount: 1 mg Route: I.V. Start: 12:18 PM Stop: 12:18 PM Medication: Fentanyl Amount: 50 mcg Route: I.V. Start: 12:33 PM Stop: 12:33 PM Medication: Heparin Amount: 7000 units Route: I.V. Start: 1:19 PM Stop: 1:19 PM Medication: Versed Amount: 1 mg Route: I.V. Start: 1:20 PM Stop: 1:20 PM Medication: Fentanyl Amount: 50 mcg Route: I.V. Start: 1:32 PM Stop: 1:32 PM Medication: Heparin Amount: 1000 units Route: I.V. I, the attending physician, have reviewed and verified all procedure medications. Yes, all medications given per verbal order History/Risk Factors Hypertension: Yes Dyslipidemia: Yes Diabetic Therapy: Insulin Peripheral Arterial Disease (PAD): No Myocardial Infarction (IA): No Obesity: No Renal Disease: No Tobacco Use: Current/Recent(w/in 1 year) Prior Interventions PCI: No CABG: No Valve Surgery: No Report Signatures Finalized by:Cristian Kumari MD on 08/16/2019 6:56:09 PM
--- NOTE | 2019-08-02 12:13 | PC.NURSE ---
DR. GAGE NOTIFIED OF PATIENT'S BLOOD SUGAR OF 154, PER PROTOCOL HE QUALIFIES FOR 2 UN[address] OF NOVOLOG. PER DR. GAGE, HOLD INSULIN FOR CATH.
--- NOTE | 2019-08-02 14:04 | PM.PN ---
Subjective Subjective: Interval history: Patient awake in bed earlier today at time of exam. He denies any chest pain or shortness of breath at that time while resting, denied any abdominal pain or nausea. Discussed with patient plan for cardiac cath today and he denied any questions or concerns. Vitals/I&O/Wt Last Vital Signs Temp 97.7 F 08/02/19 07:40 Pulse 59 L 08/02/19 11:15 Resp 19 H 08/02/19 11:15 BP 114/76 08/02/19 11:15 Pulse Ox 92 08/02/19 11:15 08/01/19 08/02/19 08/02/19 22:59 06:59 14:59 Intake Total 360 / 360 60 / 420 450.31 / 450.31 Output Total 500 / 500 Balance 360 / 360 -440 / -80 450.31 / 450.31 Weight last 48 hrs Weight 62.959 kg Weight 64.229 kg Weight 64.229 kg Weight 61.235 kg Physical Exam Const: COMMON NORMALS: oriented x3 and alert GENERAL APPEARANCE: cooperative ORIENTATION/CONSCIOUSNESS: Yes awake, Yes oriented to person, Yes oriented to place and Yes oriented to time HENMT: COMMON NORMALS: normocephalic and head/scalp atraumatic HEAD & SCALP: normocephalic and atraumatic Eye: COMMON NORMALS: PERRL PUPIL: Yes PERRL Neck/C-Spine: COMMON NORMALS: supple GENERAL: Yes normal visual inspection Resp: OTHER: Respirations even and unlabored, diminished breath sounds bilaterally with prolonged expiratory phase, no wheezing or rhonchi Cardio: COMMON NORMALS: regular rate, regular rhythm and no murmurs RATE: regular rate RHYTHM: regular rhythm GI: COMMON NORMALS: soft to palpation and non-tender INSPECTION: No abdominal distension AUSCULTATION: Yes normoactive bowel sounds PALPATION: Yes soft Extremity: COMMON NORMALS: no clubbing, cyanosis or edema and no calf tenderness Neuro: COMMON NORMALS: oriented x3, CN's II-XII intact bilaterally, moves all extremities and no focal motor deficits SENSORIUM/ORIENTATION: Yes alert, Yes oriented to person, Yes oriented to place and Yes oriented to time SPEECH: speech normal Psych: COMMON NORMALS: mental status grossly normal and cooperative Skin: COMMON NORMALS: no rashes or lesions noted GENERAL SKIN EXAM: no rashes or lesions noted Data : 08/01/19 04:10 08/02/19 03:45 A&P Assessment and plan (1) NSTEMI (non-ST elevated myocardial infarction): Dr. Kumari consulted, appreciate recommendations and assistance in patient's care Plan for cardiac cath today Continue on aspirin, statin, metoprolol Status: Acute Code(s): I21.4 - Non-ST elevation (NSTEMI) myocardial infarction (2) Diabetes: Patient is on chronic insulin therapy On Levemir 50 units at bedtime, will continue but decrease dose due to acute hospitalization and do not wish for him to become hypoglycemic. He is also on Trulicity at home, holding at this time, will continue on sliding scale insulin as needed A1c 10.8 Status: Acute Code(s): E11.9 - Type 2 diabetes mellitus without complications (3) Hyperlipidemia: Continue atorvastatin Status: Acute Code(s): E78.5 - Hyperlipidemia, unspecified (4) Hypertension: Blood pressure well controlled at this time, will continue on metoprolol Status: Acute Code(s): I10 - Essential (primary) hypertension (5) Tobacco abuse: Strongly encourage cessation, nicotine patch as needed Status: Acute Code(s): Z72.0 - Tobacco use Attestations Medical Necessity Statement*: Patient requires further hospitalization due to non-ST elevation ID status post cardiac cath Coding Level of Care Code Acute Channel Installer for Anna Khan Diagnoses NSTEMI (non-ST elevated myocardial infarction) I21.4 Diabetes E11.9 Hyperlipidemia E78.5 Hypertension I10 Tobacco abuse Z72.0
[2019-08-02 16:07] LABS: Glucose Point of Care 323 mg/dL (70-110)
--- NOTE | 2019-08-02 18:13 | PM.PN ---
Subjective Subjective: Interval history: Denies any chest pain underwent coronary angiogram and PCI to mid circumflex and ostial obtuse marginal 1 Medications: Reviewed: Yes Vitals/I&O/Wt Last Vital Signs Temp 97.7 F 08/02/19 07:40 Pulse 60 08/02/19 15:30 Resp 22 H 08/02/19 15:30 BP 92/63 08/02/19 15:30 Pulse Ox 97 08/02/19 15:30 08/02/19 08/02/19 08/02/19 06:59 14:59 22:59 Intake Total 60 / 420 450.31 / 450.31 Output Total 500 / 500 Balance -440 / -80 450.31 / 450.31 Weight last 48 hrs Weight 138 lb 12.8 oz Weight 141 lb 9.6 oz Weight 141 lb 9.6 oz Weight 135 lb Physical Exam Narrative: EXAM NARRATIVE: GENERAL: Patient is alert, awake and oriented x3. NECK: No jugular vein distension. HEENT: No cyanosis. No icterus. No pallor. HEART: Regular S1 and S2. No murmur, rub or gallop. LUNGS: Clear to auscultate bilaterally. ABDOMEN: Soft, nontender and nondistended. Positive bowel sounds. No guarding, rebound or tenderness. CENTRAL NERVOUS SYSTEM: Grossly nonfocal. EXTREMITIES: Lower extremities without edema bilaterally. Data : 08/01/19 04:10 08/02/19 03:45 A&P Assessment and plan (1) NSTEMI (non-ST elevated myocardial infarction): Patient is status post coronary angiogram noted to have mid subtotally occluded bifurcating circumflex with moderate to large obtuse marginal which was also ostially 99% occluded treated with balloon angioplasty followed by single drug-eluting stent. Stent was postdilated with noncompliant balloon. Excellent angiographic result was achieved.Continue aspirin statin add beta sumi and Plavix. Status: Acute Code(s): I21.4 - Non-ST elevation (NSTEMI) myocardial infarction (2) Diabetes: As per medicine Status: Acute Code(s): E11.9 - Type 2 diabetes mellitus without complications (3) Hyperlipidemia: Patient already has been started on statin hopefully with the use of [place] fatty acid and Meticulous control of diabetes triglyceride will improve Status: Acute Code(s): E78.5 - Hyperlipidemia, unspecified (4) Hypertension: Currently stable and well controlled. Status: Acute Code(s): I10 - Essential (primary) hypertension (5) Tobacco abuse: Advised to quit smoking. Status: Acute Code(s): Z72.0 - Tobacco use Attestations Medical Necessity Statement*: Patient regarding continuation hospitalization for above defined care. Patient is post PCI. Coding Level of Care Code Established Pt Acute Sports Management Internship for Anna Fwd Patient Type Established History Expanded Problem Focused Exam Expanded Problem Focused Medical Decision Making Moderate Complexity Diagnoses NSTEMI (non-ST elevated myocardial infarction) I21.4 Diabetes E11.9 Hyperlipidemia E78.5 Hypertension I10 Tobacco abuse Z72.0
[2019-08-02 20:48] LABS: Glucose Point of Care 194 mg/dL (70-110)
[2019-08-02] MEDS: atorvastatin 40 mg Tablet PO (21:00)
[2019-08-03] VITALS (7 sets, daily range): BP systolic 82–102; BP diastolic 53–64; PULSE 55–69; RESP 13–24; TEMP 36.6–36.8; O2SAT 91–97; BMI 23.8
[2019-08-03 04:50] LABS: Platelet Count 200 10^3/cmm (130-400)
[2019-08-03 06:25] LABS: Glucose Point of Care 102 mg/dL (70-110)
[2019-08-03] MEDS: buPROPion XL (24 HR) 150 mg Tablet PO (06:36)
--- NOTE | 2019-08-03 08:47 | PM.DCS ---
Discharge Providers Date of Admission: 08/01/19 12:20 Date of Discharge: August 03, 2019 Attending Provider at Admission: Jolene Ridley DO Attending Provider at Discharge: Jolene Ridley DO Diagnoses at Discharge Discharge Diagnosis (1) NSTEMI (non-ST elevated myocardial infarction): Status: Acute Problem details: Status post PCI on 08/02/[address] Kumari (2) Diabetes: Status: Acute Problem details: Continue with home Trulicity (3) Hyperlipidemia: Status: Acute Problem details: Continue rosuvastatin (4) Hypertension: Status: Acute Problem details: Continue on metoprolol (5) Tobacco abuse: Status: Acute Problem details: Strongly encouraged cessation Reason for Visit Reason for Visit: Reason For Visit: CP Hospital Course Hospital Course: Patient was seen and evaluated in the emergency department and admitted for further evaluation and treatment due to non-ST elevation SD. He was admitted to cardiac stepdown and started on a heparin drip with serial EKG and troponin. Cardiology was consulted and patient was taken to cardiac [employer] on 08/02/[address] Kumari. Patient did well following the procedure without any concerns. He was started on aspirin, atorvastatin, Plavix, and continued on metoprolol. On date of discharge patient denied any concerns, denied chest pain or shortness of breath, denied any abdominal pain. Discussed with him plan for discharge to home and he verbalized understanding and agreed with plan. Discharge Summary: Discharge to home Follow-up with cardiology clinic in 1 week Follow-up with primary care provider in 3 to 5 days Follow-up with Dr. Kumari in 3 to 4 weeks Strongly encouraged tobacco cessation Physical Exam Const: COMMON NORMALS: oriented x3 and alert GENERAL APPEARANCE: cooperative ORIENTATION/CONSCIOUSNESS: Yes awake, Yes oriented to person, Yes oriented to place and Yes oriented to time HENMT: COMMON NORMALS: normocephalic and head/scalp atraumatic HEAD & SCALP: normocephalic and atraumatic Eye: COMMON NORMALS: PERRL PUPIL: Yes PERRL Neck/C-Spine: COMMON NORMALS: supple GENERAL: Yes normal visual inspection Resp: OTHER: Respirations even and unlabored, diminished breath sounds bilaterally with prolonged expiratory phase, no wheezing or rhonchi Cardio: COMMON NORMALS: regular rate, regular rhythm and no murmurs RATE: regular rate RHYTHM: regular rhythm GI: COMMON NORMALS: soft to palpation and non-tender INSPECTION: No abdominal distension AUSCULTATION: Yes normoactive bowel sounds PALPATION: Yes soft Extremity: COMMON NORMALS: no clubbing, cyanosis or edema and no calf tenderness Neuro: COMMON NORMALS: oriented x3, CN's II-XII intact bilaterally, moves all extremities and no focal motor deficits SENSORIUM/ORIENTATION: Yes alert, Yes oriented to person, Yes oriented to place and Yes oriented to time SPEECH: speech normal Psych: COMMON NORMALS: mental status grossly normal and cooperative Skin: COMMON NORMALS: no rashes or lesions noted GENERAL SKIN EXAM: no rashes or lesions noted Discharge Data Data Completed and Pending: Completed Studies During Hospitalization Category Date Time Status XR chest 1V markell ble [id number] Stat Exams 07/31/19 23:15 Completed Pending at discharge Category Date Time 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 Routin e Exams 08/02/19 11:30 Ordered Platelet Count Q2 D Lab 08/05/19 04:00 Ordered Labs from last 24 hours 08/03/19 08/03/19 08/02/19 06:21 04:35 20:41 Plt Count 200 APTT POC Glucose 102 194 08/02/19 08/02/19 08/02/19 15:59 11:20 09:53 Plt Count APTT 72.6 H POC Glucose 323 154 Vitals: Last Vital Signs Temp 98.2 F 08/03/19 08:00 Pulse 69 08/03/19 08:14 Resp 13 08/03/19 08:00 BP 94/53 08/03/19 08:00 Pulse Ox 91 08/03/19 08:14 Discharge Plan Discharge Patient Disposition: Home, Self-Care Condition: Stable Prescriptions: New clopidogrel 75 mg Tablet 75 mg PO DAILY 30 Days Qty: 30 RF: 0 metoprolol tartrate 25 mg Tablet 25 mg PO , 30 Days Qty: 60 RF: 0 Continued omega-3 fatty acids 1,000 mg Capsule 2,000 mg PO BID RF: 0 aspirin 81 mg Tablet,Delayed Release (Dr/Ec) 81 mg PO DAILY RF: 0 Vitamin B-12 500 mcg Tablet 500 mcg PO DAILY RF: 0 Humalog KwikPen Insulin 100 unit/mL Insulin Pen 10 unit SUBCUT TID RF: 0 ezetimibe 10 mg Tablet 10 mg PO DAILY RF: 0 rosuvastatin 40 mg Tablet 40 mg PO DAILY RF: 0 bupropion HCl 150 mg Tablet Extended Release 24 Hr 150 mg PO QAM RF: 0 Levemir FlexTouch U-100 Insuln 50 unit SUBCUT DAILY RF: 0 Trulicity See Rx Instructions .ROUTE .COMPLEX RF: 0 Discharge Orders: Discharge Order (Routine); Ordered 08/03/19 Ordered By: Jolene Ridley Referrals: Cristian Kumari MD [Physician] - 1 month (Follow-up with cardiology office in 1 week, follow-up with Dr. Kumari in 1 month) Palomo Navas MD [Family Provider] - 4-7 days Discharge Diet: Cardiac and Diabetic Discharge Activity: Increase activity as tolerated and Limit activity as instructed Activity Restrictions/Additional Instructions: Continue on aspirin, Plavix, rosuvastatin and metoprolol Follow-up with cardiology clinic in 1 week with follow-up with Dr. Kumari in 1 month. Follow-up with primary care provider in 3 to 5 days Strongly encouraged cessation of tobacco use Call your physician or present to the ER for any acute illness or concern Discharge Attestations Time Spent in Discharge Care*: greater than 30 min Quality Metrics Clinical Quality Measures During this hospital stay, did patient experience: AMI Clinical Trial Participant: No Contraindication to aspirin (AMI): Aspirin given Contraindication to statin: Statin prescribed Coding Level of Care Code Acute Barrel Bung Remover And Dumper for g Fwd Diagnoses NSTEMI (non-ST elevated myocardial infarction) I21.4 Diabetes E11.9 Hyperlipidemia E78.5 Hypertension I10 Tobacco abuse Z72.0
[2019-08-03] MEDS: metoprolol tartrate 25 mg Tablet PO (10:02)
[2019-08-03] MEDS: aspirin 81 mg Chew Tablet 162 MG PO (10:02)
[2019-08-03] MEDS: clopidogrel 75 mg Tablet PO (10:03)
[2019-08-03] MEDS: ezetimibe 10 mg Tablet PO (10:04)
[2019-08-03 11:34] LABS: Glucose Point of Care 240 mg/dL (70-110)
--- NOTE | 2019-08-03 13:46 | PC.NURSE ---
called new rX to [facility]
--- NOTE | 2019-08-03 14:57 | PC.NURSE ---
Discharge to home with family at bedside
== END 2019-08-03 14:58 | disposition home or self-care (01) | DRG 247 ==
LOC: ER 23:43 → CSU 08-01 02:16
PROVIDERS: Emergency Medicine; Internal Medicine Cardiovascular Disease; Admitting Provider Hospitalist; Emergency Provider Physician Assistant; Family Provider Family Medicine; Visit Provider Family Medicine
DX: I21.4 Non-ST elevation (NSTEMI) myocardial infarction (principal); E11.9 Type 2 diabetes mellitus without complications; E78.5 Hyperlipidemia, unspecified; I10 Essential (primary) hypertension; Z79.82 Long term (current) use of aspirin; Z79.4 Long term (current) use of insulin; Z79.899 Other long term (current) drug therapy; E78.1 Pure hyperglyceridemia
CPT/HCPCS: 12345; 36415; 36416; 71045; 80048; 80053; 80061; 82962; 83036; 83721; 83735; 83880; 84100; 84484; 85025; 85049; 85347; 85610; 85730; 93005; 93454; 96372; 99283; C1725; C1769; C1874; C1887; C1894; C9600; G0378; J1644; J1815; J2001; J2250; J3010; J7030; Q0163; Q9967

== ENCOUNTER → 2021-01-09 15:19 | Outpatient (BNVA) | payer MEDICARE, MEDICAID, SELFPAY | PROVIDERS: Family Provider Family Medicine; PCP Family Medicine; Visit Provider Nurse Practitioner Family | DX: Z20.822 Contact with and (suspected) exposure to COVID-19 (principal); J06.9 Acute upper respiratory infection, unspecified | CPT/HCPCS: 87635 ==

== ENCOUNTER → 2021-10-15 15:13 | Outpatient (BNVA) | payer MEDICARE, MEDICAID, SELFPAY | PROVIDERS: Family Provider Family Medicine; PCP Family Medicine; Visit Provider Internal Medicine | DX: I25.2 Old myocardial infarction (principal); E78.49 Other hyperlipidemia; I10 Essential (primary) hypertension; F17.210 Nicotine dependence, cigarettes, uncomplicated | CPT/HCPCS: 99213; 99214 ==

== ENCOUNTER 2022-05-19 07:57 | Emergency (ER) | payer MEDICARE, MEDICAID, SELFPAY ==
[2022-05-19 07:57] VITALS: BP 117/69; PULSE 75; RESP 18; TEMP 36.8; O2SAT 94; BMI 24.1
[2022-05-19 08:01] VITALS: BP 121/75
--- NOTE | 2022-05-19 08:02 | PC.NURSE ---
per EMS, pt c/o low back pain, bilateral leg pain, and a migraine that began yesterday. Denies injury. Reports upon their arrival, pt was ambulatory on scene and climbed into the ambulance himself. Reports pt was resting quietly en route until just before arrival to ER when pt began rolling around and groaning. Pt denies nausea or vomiting, loss of control of bowel or bladder. Pt groaning in bed. Speech clear, speaking in complete sentences without difficulty. lung sounds clear bilat. bowel sounds present x4. skin pink/warm./dry.
--- NOTE | 2022-05-19 08:05 | CT_ITS ---
WS: [id number] CT ABDOMEN PELVIS TECHNIQUE: Noncontrast CT of the abdomen and pelvis with coronal and sagittal reformatted images. CLINICAL INFORMATION: flank pain possible kidney stone COMPARISON: None. DLP: 352.[address] scans at [facility] use at least one of these dose optimization techniques: automated e xposure control; mA and/or kV adjustment per patient size (includes targeted exams where dose is matc hed to clinical indication); or iterative reconstruction. FINDINGS: Normal appendix in the RIGHT lower quadrant. Adrenal glands are normal. No hydronephrosis in either k idney. No obstructing renal or ureteral calculi. Fat-containing RIGHT inguinal hernia. No herniated b owel. Lung bases are well aerated. Normal noncontrast liver. Normal GE junction. Noncontrast spleen i s normal. Normal noncontrast pancreas. Normal caliber abdominal aorta. Aortic calcification.. No othe r acute findings. CT/CT abdomen pelvis wo con [id number] IMPRESSION: 1. Normal appendix in the RIGHT lower quadrant. No evidence of acute appendici tis. 2. No hydronephrosis in either kidney. No obstructing renal or ureteral calcul i. 3. Fat-containing RIGHT inguinal hernia. No herniated bowel. 4. No other remarkable findings.
--- NOTE | 2022-05-19 08:12 | W.ED.BACK ---
HPI - Back Pain/Injury General: Chief Complaint: Headache Stated Complaint: migraine, back pain Time Seen by Provider: 05/19/22 07:58 History of Present Illness: 61-year-old male who presents with back pain and a headache. Patient states he gets migraines about every other day. The headache that he is having is like his typical migraine. The main reason he came in today is because he is having pain in the right flank and right lower back area. The pain is cramping in nature, associated with pain down both legs. The pain radiates down the medial aspect of both of his legs to his feet. Pain is severe and crampy in nature. He denies associated weakness or numbness. He denies loss of bowel or bladder control. He denies injury. He denies any difficulty urinating. He denies associated abdominal pain. He states he does get back pain but this is different than his typical chronic back pain. He has not tried anything for it. Associated symptoms: Reports difficulty walking; Deny abdominal pain, chills, fever(s), hematuria, nausea or vomiting Review of Systems Const: Reports: body aches; Denies: fever(s) or chills Eyes: Denies: change in vision ENMT: Denies: throat pain Card: Denies: chest pain or swelling of feet/ankles Resp: Denies: dyspnea GI: Denies: abdominal pain, nausea, vomiting or diarrhea : Reports: flank pain; Denies: difficulty urinating, urinary frequency or hematuria Musc: Reports: back pain, extremity pain and muscle cramps; Denies: extremity swelling Skin/Breast: Denies: rash Neuro: Reports: difficulty walking; Denies: numbness in extremities or weakness in extremities PFSH ED PFSH: Medical History Coronary artery disease Diabetes Continue with home Trulicity Hyperlipidemia Continue rosuvastatin Hypertension Continue on metoprolol Migraine headache NSTEMI (non-ST elevated myocardial infarction) Presence of stent in left circumflex coronary artery Tobacco abuse Strongly encouraged cessation Surgical History History of orthopedic surgery L elbow surgery Family History Father CAD (coronary artery disease) Mother CAD (coronary artery disease) Social History Smoking and tobacco status: current every day smoker Quit status (tobacco): has tried quititng Alcohol intake: current Alcohol intake frequency: holidays/special occasions only Physical Exam Const: COMMON NORMALS: average body habitus and patient oriented x3 OTHER: Patient is writhing in pain HENMT: COMMON NORMALS: normocephalic, atraumatic and moist oral mucous membranes HEAD & SCALP: normocephalic and atraumatic Eye: COMMON NORMALS: Equal, round and reactive pupils present, EOMs intact bilaterally and conjunctivae normal CONJUNCTIVA: Yes conjunctivae normal PUPIL: Yes Equal, round and reactive pupils present Neck/C-Spine: COMMON NORMALS: supple Resp: COMMON NORMALS: normal respiratory effort, No use of accessory muscles and clear to auscultation bilaterally AUSCULTATION: clear to auscultation bilaterally Cardio: COMMON NORMALS: regular rate and regular rhythm RATE: regular rate RHYTHM: regular rhythm GI: COMMON NORMALS: Normal to inspection, nondistended, normoactive bowel sounds present, Soft to palpation and non-tender PALPATION: Yes Soft to palpation Back/Pelvis: OTHER: Tenderness in the midline in the lower lumbar spine area. Also tender on the right paraspinous musculature in the lumbar region. Positive straight leg raise bilaterally. Extremity: OTHER: No extremity tenderness or swelling. No edema. Neuro: COMMON NORMALS: patient oriented x3, CN's II-XII intact bilaterally, moves all extremities, no focal motor deficits and no sensory deficits noted Skin: OTHER: No rash noted Course Reevaluation(s): Reevaluation #1: Patient's been given IV Toradol and IV Norflex. He is sleeping comfortably and in no apparent distress at this time. Laboratory studies are unremarkable. Urinalysis is negative. CT the abdomen pelvis shows no acute findings. I suspect this is musculoskeletal pain in nature. We will plan for discharge home on Anaprox DS twice daily as needed for pain as well as Norflex to take up to 3 times daily as needed for muscle spasm. I am also going to give him Fioricet to take every 4-6 hours as needed for his migraine headaches. He needs to go home and rest. He should apply ice to the area and his low back that is hurting. Return if his symptoms are worsening. He does have elevated blood sugar here and I have encouraged him to follow his diabetic diet and take his medications as prescribed for his diabetes including his insulin and Trulicity. He needs to follow-up with his primary care doctor dionna العراقي for recheck and blood sugar management. Vital Signs: Vital signs: Vital Signs Temperature 98.2 F 05/19/22 07:57 Pulse Rate 76 05/19/22 09:31 Respiratory Rate 16 05/19/22 09:31 Blood Pressure 102/63 05/19/22 09:31 Pulse Oximetry 95 05/19/22 09:31 Oxygen Delivery Me thod 05/19/22 09:31 MDM - Back Pain/Injury Medical Decision Making 61-year-old male who presents with right flank pain with associated bilateral lower extremity pain. I suspect this is most likely musculoskeletal in nature but pyelonephritis or kidney stone are also in the differential as well as an aortic dissection. The patient has no abdominal tenderness and is not hypertensive so do not feel that an aortic aneurysm is likely. We will obtain a CT renal colic. We will start an IV and give the patient IV Toradol and Norflex and obtain laboratory studies including a urinalysis and blood work. Differential Diagnosis Likely lumbar radiculopathy, sciatica, strain of lumbar region, renal colic, pyelonephritis, thoracic back pain and AAA Labs I reviewed the patient's lab results. 05/19/22 08:38 05/19/22 08:38 Radiology Impressions Abdomen/Pelvis CT 05/19/22 08:05 IMPRESSION: 1. Normal appendix in the RIGHT lower quadrant. No evidence of acute appendicitis. 2. No hydronephrosis in either kidney. No obstructing renal or ureteral calculi. 3. Fat-containing RIGHT inguinal hernia. No herniated bowel. 4. No other remarkable findings. Laboratory Results WBC 3.6 10^3/uL (4.0-10.0) L 05/19/22 08:38 RBC 5.68 10^6/uL (4.1-5.3) H 05/19/22 08:38 Hgb 16.0 g/dL (11.7-16.6) 05/19/22 08:38 Hct 49.3 % (42.0-52.0) 05/19/22 08:38 MCV 86.8 fl (80-94) 05/19/22 08:38 MCH 28.2 pg (28.0-34.0) 05/19/22 08:38 MCHC 32.5 g/dL (30.0-36.0) 05/19/22 08:38 RDW 12.1 % (12.1-15.1) 05/19/22 08:38 Plt Count 168 10^3/cmm (130-400) 05/19/22 08:38 MPV 11.8 fL (7.4-10.4) H 05/19/22 08:38 Neut % (Auto) 80.9 % 05/19/22 08:38 Lymph % (Auto) 10.2 % 05/19/22 08:38 [place] % (Auto) 5.5 % 05/19/22 08:38 Eos % (Auto) 2.2 % 05/19/22 08:38 Baso % (Auto) 0.6 % 05/19/22 08:38 Neut # (Auto) 2.94 10^3/uL (1.8-7.7) 05/19/22 08:38 Lymph # (Auto) 0.4 10^3/uL (0.8-4.8) L 05/19/22 08:38 [place] # (Auto) 0.2 10^3/uL (0.2-0.9) 05/19/22 08:38 Eos # (Auto) 0.1 10^3/uL (0.0-0.8) 05/19/22 08:38 Baso # (Auto) 0.0 10^3/uL (0.0-0.1) 05/19/22 08:38 Nucleated RBC % (auto) 0 % 05/19/22 08:38 Nucleated RBCs # 0.0 /100WBC 05/19/22 08:38 ESR 10 mm/hr (0-10) 05/19/22 08:38 Sodium 129 mmol/L (136-145) L 05/19/22 08:38 Potassium 4.5 mmol/L (3.5-5.1) 05/19/22 08:38 Chloride 91 mmol/L (98-107) L 05/19/22 08:38 Carbon Dioxide 26 mmol/L (22-29) 05/19/22 08:38 Anion Gap 16.5 (5-19) 05/19/22 08:38 BUN 20 mg/dL (8-23) 05/19/22 08:38 Creatinine 1.1 mg/dL (0.7-1.2) 05/19/22 08:38 GFR Calculation 67.8 mL/min (90-130) L 05/19/22 08:38 Glucose 386 mg/dL (65-115) H 05/19/22 08:38 Calculated Osmolality 287 mOsm/kg (285-295) 05/19/22 08:38 Calcium 9.4 mg/dL (8.5-10.5) 05/19/22 08:38 Magnesium 1.7 mg/dL (1.7-2.3) 05/19/22 08:38 Total Bilirubin 0.5 mg/dL (0.15-1.2) 05/19/22 08:38 AST 65 U/L (0-40) H 05/19/22 08:38 ALT 54 U/L (0-41) H 05/19/22 08:38 Alkaline Phosphatase 155 U/L (40-130) H 05/19/22 08:38 Creatine Kinase 27 U/L (39-308) L 05/19/22 08:38 Total Protein 7.5 g/dL (6.6-8.7) 05/19/22 08:38 Albumin 4.1 g/dL (3.5-5.2) 05/19/22 08:38 Globulin 3.4 g/dL (1.3-4.6) 05/19/22 08:38 Urine Color Yellow (Yellow) 05/19/22 07:24 Urine Appearance Clear (CLEAR) 05/19/22 07:24 Urine pH 5 (5-7) 05/19/22 07:24 Ur Specific [place] 1.015 (1.005-1.030) 05/19/22 07:24 Urine Protein Neg (Negative) 05/19/22 07:24 Urine Glucose (UA) 4+ (Normal) H 05/19/22 07:24 Urine Ketones 1+ (Negative) H 05/19/22 07:24 Urine Blood Neg (Negative) 05/19/22 07:24 Urine Nitrate Negative (Negative) 05/19/22 07:24 Urine Bilirubin Neg (Negative) 05/19/22 07:24 Urine Urobilinogen Norm mg/dL (Negative) 05/19/22 07:24 Ur Leukocyte Esterase Negative (Negative) 05/19/22 07:24 Influenza Type A Ag negative (Negative) 05/19/22 08:52 Influenza Type B Ag negative (Negative) 05/19/22 08:52 Discharge Plan Discharge Patient Disposition: Home Clinical Impression: Back pain with radiculopathy, Diabetes, Migraine, Hyperglycemia Condition: Stable Prescriptions: New Anaprox DS 550 mg tablet 550 mg PO Q12H PRN (Reason: pain) Qty: 30 0RF cyclobenzaprine 10 mg tablet 10 mg PO TID PRN (Reason: muscle spasm) Qty: 30 0RF Fioricet 50-300-40 mg capsule 1 cap PO Q4H PRN (Reason: headache) Qty: 20 0RF No Action clopidogrel 75 mg tablet 75 mg PO DAILY Qty: 90 3RF metoprolol tartrate 25 mg tablet 25 mg PO BID Qty: 60 6RF omega-3 fatty acids 1,000 mg Capsule 2,000 mg PO BID aspirin 81 mg Tablet,Delayed Release (Dr/Ec) 81 mg PO DAILY Vitamin B-12 500 mcg Tablet 500 mcg PO DAILY Humalog KwikPen Insulin 100 unit/mL Insulin Pen 10 unit SUBCUT TID ezetimibe 10 mg Tablet 10 mg PO DAILY rosuvastatin 40 mg Tablet 40 mg PO DAILY bupropion HCl 150 mg Tablet Extended Release 24 Hr 150 mg PO QAM Levemir FlexTouch U-100 Insuln 50 unit SUBCUT DAILY Trulicity See Rx Instructions .ROUTE .COMPLEX Rx Instructions: 0.5 mL subcutaneously weekly taken on Tuesday Discharge Orders: Discharge ED (Routine); Ordered 05/19/22 Ordered By: Beryl Patel Referrals: Palomo Navas MD [Primary Care Provider] - Discharge Diet: Advance as tolerated Discharge Activity: Increase activity as tolerated Patient Instructions: Opioid Safety, Pain Management, Back Pain (ED), Migraine Headache (ED), Hyperglycemia Activity Restrictions/Additional Instructions: Apply ice to the affected area on your back. Take the muscle relaxants 3 times daily as needed. Take the Anaprox DS twice daily for pain. Take the Fioricet 1 tablet every 4 hours as needed for your migraine headaches. You need to monitor your blood sugar and follow your diabetic diet and use your insulin as prescribed. Return if you are having increased pain, weakness, loss of bowel or bladder control. Follow-up this week with your primary care doctor for reevaluation as well as for management of your blood sugar issues. Coding Level of Care Code ED Recreation Adviser for Anna Fwd Exam Comprehensive
[2022-05-19 08:31] VITALS: PULSE 75; O2SAT 94
[2022-05-19] MEDS: sodium chloride 0.9% 1,000 ML 999 ML IV (08:33)
[2022-05-19 08:34] LABS: Add Urine Microscopic? NO; Charge for UA Resulting for Rev
[2022-05-19 08:35] LABS: Bilirubin Urine Neg (Negative); Blood Urine Neg (Negative); Glucose Urine UA 4+ (Normal); Ketones Urine 1+ (Negative); Leukocyte Esterase Urine Negative (Negative); Nitrate Urine Negative (Negative); Protein Urine Neg (Negative); Specific Gravity, Urine 1.015 (1.005-1.030); Urine Appearance Clear (CLEAR); Urine Color Yellow (Yellow); Urobilinogen Urine Norm (Negative); pH Urine 5 (5-7)
[2022-05-19] MEDS: ketorolac 30 mg/mL INJ 15 MG IVP (08:40)
[2022-05-19] MEDS: orphenadrine 30 mg/mL Inj 2 mL 60 MG IVP (08:43)
[2022-05-19 08:55] LABS: Basophils % 0.6 %; Eosinophils # 0.1 10^3/uL (0.0-0.8); Eosinophils % 2.2 %; Hematocrit 49.3 % (42.0-52.0); Lymphocytes # 0.4 10^3/uL (0.8-4.8); Lymphocytes % 10.2 %; Mean Corpuscular HGB Conc 32.5 g/dL (30.0-36.0); Mean Corpuscular Hemoglobin 28.2 pg (28.0-34.0); Mean Corpuscular Volume 86.8 fl (80-94); Mean Platelet Volume 11.8 fL (7.4-10.4); Monocytes # 0.2 10^3/uL (0.2-0.9); Monocytes % 5.5 %; Neutrophils # 2.94 10^3/uL (1.8-7.7); Neutrophils % 80.9 %; Nucleated Red Blood Cells % 0 %; Platelet Count 168 10^3/cmm (130-400); Red Blood Count 5.68 10^6/uL (4.1-5.3); Red Cell Distribution Width 12.1 % (12.1-15.1); White Blood Count 3.6 10^3/uL (4.0-10.0)
[2022-05-19 08:56] LABS: Erythrocyte Sedimentation Rate 10 mm/hr (0-10)
[2022-05-19 08:59] VITALS: BP 108/65; PULSE 74; O2SAT 94
[2022-05-19 09:10] LABS: Alanine Aminotransferase 54 U/L (0-41); Albumin Level 4.1 g/dL (3.5-5.2); Alkaline Phosphatase 155 U/L (40-130); Anion Gap 16.5 (5-19); Aspartate Amino Transferase 65 U/L (0-40); Blood Urea Nitrogen 20 mg/dL (8-23); Calcium 9.4 mg/dL (8.5-10.5); Carbon Dioxide 26 mmol/L (22-29); Chloride 91 mmol/L (98-107); Creatine Phosphokinase 27 U/L (39-308); Globulin 3.4 g/dL (1.3-4.6); Glomerular Filtration Rate 67.8 mL/min (90-130); Glucose 386 mg/dL (65-115); Magnesium 1.7 mg/dL (1.7-2.3); Osmolality Calculated 287 mOsm/kg (285-295); Potassium 4.5 mmol/L (3.5-5.1); Sodium 129 mmol/L (136-145); Total Bilirubin 0.5 mg/dL (0.15-1.2); Total Protein 7.5 g/dL (6.6-8.7)
[2022-05-19 09:19] LABS: Influenza A by IFA negative (Negative); Influenza B by IFA negative (Negative)
[2022-05-19 09:31] VITALS: BP 102/63; PULSE 76; RESP 16; O2SAT 95
--- NOTE | 2022-05-19 09:52 | PC.NURSE ---
pt resting in bed, laying on back. appears comfortable. requesting water, after verifying with physician cup of water brought to pt
[2022-05-19 11:03] LABS: Adenovirus Not Detected (NOT DETECT); Chlamydia Pneumoniae Not Detected (NOT DETECT); Coronavirus 229E,HKU1,NL63,OC4 Not Detected (NOT DETECT); Human Metapneumovirus Not Detected (NOT DETECT); Human Rhinovirus/Enterovirus Not Detected (NOT DETECT); Influenza A Not Detected (NOT DETECT); Influenza A H1 Not Detected (NOT DETECT); Influenza A H1-2009 Not Detected (NOT DETECT); Influenza A H3 Not Detected (NOT DETECT); Influenza B Not Detected (NOT DETECT); Mycoplasma Pneumoniae Not Detected (NOT DETECT); Parainfluenza Virus Type 1 Not Detected (NOT DETECT); Parainfluenza Virus Type 2 Not Detected (NOT DETECT); Parainfluenza Virus Type 3 Not Detected (NOT DETECT); Parainfluenza Virus Type 4 Not Detected (NOT DETECT); Respiratory Syncytial Virus A Not Detected (NOT DETECT); Respiratory Syncytial Virus B Not Detected (NOT DETECT); SARS-COV-2 Not Detected (NOT DETECT)
[2022-05-19 11:32] VITALS: BP 113/72; PULSE 84; RESP 14; O2SAT 95
== END 2022-05-19 11:34 | disposition home or self-care (01) ==
PROVIDERS: Emergency Provider Emergency Medicine; PCP Family Medicine
DX: M54.16 Radiculopathy, lumbar region (principal); G43.909 Migraine, unspecified, not intractable, without status migrainosus; E11.65 Type 2 diabetes mellitus with hyperglycemia; Z79.85 Long-term (current) use of injectable non-insulin antidiabetic drugs; Z79.02 Long term (current) use of antithrombotics/antiplatelets; Z79.82 Long term (current) use of aspirin; Z79.4 Long term (current) use of insulin; F17.210 Nicotine dependence, cigarettes, uncomplicated; I25.10 Atherosclerotic heart disease of native coronary artery without angina pectoris; E78.5 Hyperlipidemia, unspecified; I10 Essential (primary) hypertension; I25.2 Old myocardial infarction; Z20.822 Contact with and (suspected) exposure to COVID-19
CPT/HCPCS: 36415; 74176; 80053; 81003; 82550; 83735; 85025; 85651; 87635; 87804; 96361; 96374; 96375; 99285; J1885; J2360; J7030

== ENCOUNTER 2022-06-20 16:15 | Emergency (ER) | payer MEDICARE, MEDICAID, SELFPAY ==
[2022-06-20 16:35] VITALS: BP 107/70; PULSE 93; RESP 18; TEMP 36.8; O2SAT 94
--- NOTE | 2022-06-20 16:43 | XRR_ITS ---
PROCEDURE INFORMATION: Exam: XR Left Ribs with PA Chest Exam date and time: 06/20/2022 6:03 PM Age: 61 years old Clinical indication: Chest wall pain; Left TECHNIQUE: Imaging protocol: Radiologic exam of the Left ribs with PA chest. Views: 3 views COMPARISON: CR XR chest 1V portable [id number] 07/31/2019 11:23 PM FINDINGS: Lungs: A few minute calcified lung nodules are seen incidentally. Mild COPD. No consolidation. Pleural spaces: Unremarkable. No pleural effusion. No pneumothorax. Heart/Mediastinum: Unremarkable. No cardiomegaly. Bones/joints: Unremarkable. XR/XR ribs LT mn 3V w CXR1V [id number] IMPRESSION: No acute findings.
--- NOTE | 2022-06-20 17:22 | ECG_ITS ---
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 Measurements Intervals [place] Rate: 89 P: 75 LA: 144 QRS: 87 QRSD: 84 T: 81 QT: 352 QTc: 429 Interpretive Statements SINUS RHYTHM Compared to ECG 08/01/2019 09:17:44 Incomplete right bundle-branch block no longer present Electronically Signed On 06-20-2022 20:20:41 PRUNER by Judi Banks M.D. [email or web address]
--- NOTE | 2022-06-20 18:46 | ED_ITS ---
HPI - General Adult General: Chief complaint: General Medical Stated complaint: rib pain Time Seen by Provider: 06/20/22 18:43 Source: patient Mode of arrival: ambulatory Limitations: no limitations History of Present Illness: 61-year-old male states that he was working on a car and reached over with his left arm and felt a sharp pain in his left chest he states this happened a few days ago he states he has been having increasing pain especially with movement and touch he denies any pain at rest denies any shortness of breath he denies any fevers. Associated symptoms: Reports chest pain; Deny dyspnea, nausea, rash or vomiting Review of Systems Const: Reports: body aches; Denies: fever(s) or chills Eyes: Denies: change in vision ENMT: Denies: throat pain Card: Reports: chest pain; Denies: swelling of feet/ankles Resp: Denies: dyspnea GI: Denies: abdominal pain, nausea, vomiting or diarrhea : Reports: flank pain; Denies: difficulty urinating, urinary frequency or hematuria Musc: Reports: back pain, extremity pain and muscle cramps; Denies: extremity swelling Skin/Breast: Denies: rash Neuro: Reports: difficulty walking; Denies: numbness in extremities or weakness in extremities PFSH ED PFSH: Medical History Coronary artery disease Diabetes Continue with home Trulicity Hyperlipidemia Continue rosuvastatin Hypertension Continue on metoprolol Migraine headache NSTEMI (non-ST elevated myocardial infarction) Presence of stent in left circumflex coronary artery Tobacco abuse Strongly encouraged cessation Surgical History History of orthopedic surgery L elbow surgery Family History Father CAD (coronary artery disease) Mother CAD (coronary artery disease) Social History Smoking and tobacco status: current every day smoker Quit status (tobacco): has tried quititng Alcohol intake: current Alcohol intake frequency: holidays/special occasions only Physical Exam Const: COMMON NORMALS: no acute distress, patient oriented x3 and healthy appearing HENMT: COMMON NORMALS: normocephalic and atraumatic HEAD & SCALP: normocephalic and atraumatic Eye: COMMON NORMALS: Equal, round and reactive pupils present and EOMs intact bilaterally PUPIL: Yes Equal, round and reactive pupils present Neck/C-Spine: COMMON NORMALS: full ROM and supple Chest: COMMONS NORMALS: normal inspection of the chest and normal palpation of entire chest wall Resp: COMMON NORMALS: normal respiratory effort, No retractions, No use of accessory muscles and clear to auscultation bilaterally AUSCULTATION: clear to auscultation bilaterally Cardio: COMMON NORMALS: regular rate, regular rhythm and No murmurs present (Cardio) RATE: regular rate RHYTHM: regular rhythm GI: COMMON NORMALS: Normal to inspection, nondistended, normoactive bowel sounds present, Soft to palpation, non-tender and no masses PALPATION: Yes Soft to palpation Extremity: COMMON NORMALS: normal to inspection and full ROM Neuro: COMMON NORMALS: patient oriented x3, moves all extremities and no focal motor deficits Psych: COMMON NORMALS: mental status grossly normal, Normal thought process present and cooperative THOUGHT PROCESS: Normal thought process present Skin: COMMON NORMALS: no rashes or lesions noted and no wounds GENERAL SKIN EXAM: no rashes or lesions noted Course Vital Signs: Vital signs: Vital Signs Temperature 98.3 F 06/20/22 16:35 Pulse Rate 93 06/20/22 16:35 Respiratory Rate 18 06/20/22 16:35 Blood Pressure 107/70 06/20/22 16:35 Pulse Oximetry 94 06/20/22 16:35 Oxygen Delivery Me thod 06/20/22 16:35 [facility] - General Adult Medical Decision Making Patient presents here with left-sided chest wall pain he is point tender on exam patient's EKG and x-ray are normal this is muscular in nature he is stable for discharge she is to follow-up with PCP and return if worsening. Discharge Plan Discharge Patient Disposition: Home Clinical Impression: Chest wall pain Condition: Stable Prescriptions: New methocarbamol 750 mg tablet 750 mg PO Q6H PRN (Reason: spasms) Qty: 20 0RF Naprosyn 500 mg tablet 500 mg PO BID PRN (Reason: pain) Qty: 20 0RF No Action clopidogrel 75 mg tablet 75 mg PO DAILY Qty: 90 3RF metoprolol tartrate 25 mg tablet 25 mg PO BID Qty: 60 6RF omega-3 fatty acids 1,000 mg Capsule 2,000 mg PO BID aspirin 81 mg Tablet,Delayed Release (Dr/Ec) 81 mg PO DAILY Vitamin B-12 500 mcg Tablet 500 mcg PO DAILY Humalog KwikPen Insulin 100 unit/mL Insulin Pen 10 unit SUBCUT TID ezetimibe 10 mg Tablet 10 mg PO DAILY rosuvastatin 40 mg Tablet 40 mg PO DAILY bupropion HCl 150 mg Tablet Extended Release 24 Hr 150 mg PO QAM Levemir FlexTouch U-100 Insuln 50 unit SUBCUT DAILY Trulicity See Rx Instructions .ROUTE .COMPLEX Rx Instructions: 0.5 mL subcutaneously weekly taken on Tuesday Anaprox DS 550 mg tablet 550 mg PO Q12H PRN (Reason: pain) Qty: 30 0RF cyclobenzaprine 10 mg tablet 10 mg PO TID PRN (Reason: muscle spasm) Qty: 30 0RF Fioricet 50-300-40 mg capsule 1 cap PO Q4H PRN (Reason: headache) Qty: 20 0RF Discharge Orders: Discharge ED (Routine); Ordered 06/20/22 Ordered By: Chase Juarez Referrals: Fabiola Gibson, HOLE DIGGER OPERATOR [Primary Care Provider] - Discharge Diet: Advance as tolerated Discharge Activity: Resume usual activity Patient Instructions: Chest Wall Pain (ED) Coding Level of Care Code ED 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
[2022-06-20] MEDS: HYDROcodone-acetaminophen 5-325 mg Tablet 1 TAB PO (18:56)
== END 2022-06-20 18:58 | disposition home or self-care (01) ==
PROVIDERS: Emergency Provider Emergency Medicine; PCP Nurse Practitioner Family
DX: R07.89 Other chest pain (principal); Z79.82 Long term (current) use of aspirin; Z79.4 Long term (current) use of insulin; Z79.85 Long-term (current) use of injectable non-insulin antidiabetic drugs; Z79.02 Long term (current) use of antithrombotics/antiplatelets; F17.210 Nicotine dependence, cigarettes, uncomplicated; I25.10 Atherosclerotic heart disease of native coronary artery without angina pectoris; E11.9 Type 2 diabetes mellitus without complications; E78.5 Hyperlipidemia, unspecified; I10 Essential (primary) hypertension; I25.2 Old myocardial infarction
CPT/HCPCS: 71101; 93005; 99284

== ENCOUNTER → 2022-07-15 13:56 | Outpatient (BNVA) | payer MEDICARE, MEDICAID, SELFPAY | PROVIDERS: PCP Nurse Practitioner Family; Visit Provider Internal Medicine | DX: I25.2 Old myocardial infarction (principal); I10 Essential (primary) hypertension; E78.49 Other hyperlipidemia; F17.200 Nicotine dependence, unspecified, uncomplicated | CPT/HCPCS: 99214 ==

== ENCOUNTER → 2023-04-14 12:00 | Outpatient (BNVA) | payer MEDICARE, MEDICAID, SELFPAY | PROVIDERS: PCP Nurse Practitioner Family; Visit Provider Internal Medicine | DX: I21.4 Non-ST elevation (NSTEMI) myocardial infarction (principal); I10 Essential (primary) hypertension; E78.49 Other hyperlipidemia | CPT/HCPCS: 99214 ==

== ENCOUNTER 2023-04-17 22:44 | Inpatient (IN) | payer MEDICARE, MEDICAID, SELFPAY ==
[2023-04-17 22:45] VITALS: BP 134/81; PULSE 79; RESP 18; TEMP 36.8; O2SAT 95; BMI 21.9
--- NOTE | 2023-04-17 22:46 | ECG_ITS ---
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 Measurements Intervals [place] Rate: 78 P: 68 NM: 164 QRS: 84 QRSD: 91 T: 83 QT: 356 QTc: 406 Interpretive Statements SINUS RHYTHM Compared to ECG 06/20/2022 17:22:07 No significant changes Electronically Signed On 04-18-2023 7:35:04 CDT by Samy Byrd M.D. [email or web address] for women and [email or web address] [email or web address].KloudCatch/store/NU/[id number] f
--- NOTE | 2023-04-17 22:47 | XRR_ITS ---
PROCEDURE INFORMATION: Exam: XR Chest Exam date and time: 04/17/2023 11:14 PM Age: 62 years old Clinical indication: Chest pressure; Patient HX: C/O chest pain. History of nstemi. ; Additional info: Cp TECHNIQUE: Imaging protocol: Radiologic exam of the chest. Views: 1 view. COMPARISON: CR XR ribs LT mn 3V w CXR1V [id number] 06/20/2022 6:03 PM FINDINGS: Lungs: Emphysematous changes. Pleural spaces: Unremarkable. No pleural effusion. No pneumothorax. Heart/Mediastinum: Unremarkable. No cardiomegaly. Bones/joints: Unremarkable. XR/XR chest 1V portable [id number] IMPRESSION: 1. Negative for infiltrate. 2. Emphysematous changes.
[2023-04-17 23:00] LABS: Basophils % 0.5 %; Eosinophils # 0.2 10^3/uL (0.0-0.8); Eosinophils % 3.1 %; Hematocrit 48.3 % (37-53); Lymphocytes % 34.4 %; Mean Corpuscular HGB Conc 32.1 g/dL (30-55); Mean Corpuscular Hemoglobin 29.3 pg (27-33); Mean Corpuscular Volume 91.3 fl (82-101); Mean Platelet Volume 11.7 fL (7.4-10.4); Monocytes # 0.3 10^3/uL (0.2-0.9); Monocytes % 5.2 %; Neutrophils # 3.26 10^3/uL (1.8-7.7); Neutrophils % 56.5 %; Nucleated Red Blood Cells % 0 %; Platelet Count 223 10^3/cmm (157-399); Red Blood Count 5.29 10^6/uL (3.85-5.65); Red Cell Distribution Width 12.2 % (12.1-15.1); White Blood Count 5.78 10^3/uL (3.29-11.43)
[2023-04-17 23:04] VITALS: BP 138/85; PULSE 81; RESP 21; O2SAT 96
[2023-04-17 23:24] VITALS: BP 138/85; PULSE 78; RESP 21; O2SAT 94
[2023-04-17 23:24] LABS: Troponin(5th) Baseline 13 ng/L (0-15)
[2023-04-17 23:25] LABS: Alanine Aminotransferase 10 U/L (0-41); Albumin Level 4.3 g/dL (3.5-5.2); Alkaline Phosphatase 87 U/L (40-130); Anion Gap 12.9 (5-19); Aspartate Amino Transferase 12 U/L (0-40); Blood Urea Nitrogen 19 mg/dL (8-23); Calcium 9.2 mg/dL (8.5-10.5); Carbon Dioxide 27 mmol/L (22-29); Chloride 104 mmol/L (98-107); Glomerular Filtration Rate 75.5 mL/min (90-130); Glucose 326 mg/dL (65-115); Osmolality Calculated 303 mOsm/kg (285-295); Potassium 4.9 mmol/L (3.5-5.1); Sodium 139 mmol/L (136-145); Total Bilirubin 0.2 mg/dL (0.15-1.2); Total Protein 6.3 g/dL (6.6-8.7)
[2023-04-17 23:30] VITALS: BP 111/76; PULSE 81; RESP 17; O2SAT 94
[2023-04-17 23:46] VITALS: BP 128/103; PULSE 83; RESP 18; O2SAT 95
[2023-04-18] VITALS (72 sets, daily range): BP systolic 107–155; BP diastolic 66–101; PULSE 64–94; RESP 12–29; TEMP 36.6–36.7; O2SAT 76–96
[2023-04-18 00:18] LABS: NT Pro B Type Natriuretic Pept 36 pg/mL (0-125)
--- NOTE | 2023-04-18 00:47 | ECG_ITS ---
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 Measurements Intervals [place] Rate: 77 P: 65 TN: 164 QRS: 80 QRSD: 94 T: 81 QT: 370 QTc: 419 Interpretive Statements SINUS RHYTHM POSSIBLE RIGHT VENTRICULAR CONDUCTION DELAY [RSR (QR) IN V1/V2] Compared to ECG 04/17/2023 22:46:42 No significant changes Electronically Signed On 04-18-2023 7:36:03 CDT by Samy Byrd M.D. [id number]
--- NOTE | 2023-04-18 00:48 | W.ED.CHESTPA ---
HPI - Chest Pain General: Chief Complaint: Chest Pain Stated Complaint: CHEST PAIN Time Seen by Provider: 04/17/23 22:49 History of Present Illness: 62-year-old male with a history of coronary disease. He had a stent placed in 2019. No testing since that time. He presents with chest discomfort. He does continue to smoke. Pain is to the left side and central part of his chest. It started around 9 or 9:30 PM. He was watching TV when it started. No significant shortness of breath. Chronic cough. No nausea or vomiting. No syncope. Associated symptoms: Deny abdominal pain, dyspnea, fever(s), nausea, palpitations or vomiting Review of Systems Const: Denies: fever(s), chills or body aches Eyes: Denies: change in vision Card: Reports: chest pain; Denies: palpitations Resp: Reports: non-productive cough (Chronic); Denies: dyspnea, productive cough or wheezing GI: Denies: abdominal pain, nausea, vomiting, diarrhea or hematochezia Skin/Breast: Denies: rash Neuro: Denies: headache(s), weakness in extremities, dizziness or confusion PFSH ED PFSH: Medical History Coronary artery disease Diabetes Continue with home Trulicity Hyperlipidemia Continue rosuvastatin Hypertension Continue on metoprolol Migraine headache NSTEMI (non-ST elevated myocardial infarction) Presence of stent in left circumflex coronary artery Tobacco abuse Strongly encouraged cessation Surgical History History of orthopedic surgery L elbow surgery Family History Father CAD (coronary artery disease) Mother CAD (coronary artery disease) Social History Smoking and tobacco/nicotine status: current every day tobacco/nicotine user Quit status (tobacco/nicotine): has tried quititng Alcohol intake: current Alcohol intake frequency: holidays/special occasions only Physical Exam Const: COMMON NORMALS: no acute distress GENERAL APPEARANCE: cooperative; not ill appearing and not frail appearing HENMT: COMMON NORMALS: normocephalic, atraumatic and Normal external nose present HEAD & SCALP: normocephalic and atraumatic FACE & SINUS: normal facial exam and face symmetric NOSE: Normal external nose present Eye: COMMON NORMALS: Equal, round and reactive pupils present and EOMs intact bilaterally PUPIL: Yes Equal, round and reactive pupils present Neck/C-Spine: GENERAL: Yes trachea midline Chest: CHEST: Yes Symmetrical chest wall rise and Yes tenderness (Left anterior chest wall) Resp: COMMON NORMALS: normal respiratory effort, No retractions, No use of accessory muscles and clear to auscultation bilaterally AUSCULTATION: clear to auscultation bilaterally Cardio: COMMON NORMALS: regular rate and regular rhythm RATE: regular rate RHYTHM: regular rhythm GI: COMMON NORMALS: Normal to inspection, nondistended, normoactive bowel sounds present Extremity: COMMON NORMALS: no pedal edema Neuro: DEBI COMA SCALE: document GCS findings [place] coma scale eye opening: Spontaneous [place] coma scale verbal response: Orientated Debi coma scale motor response: Obey commands [place] coma scale total score: 15 SENSORY EXAM: Yes extremities (intact) Psych: COMMON NORMALS: speech normal SPEECH: Yes normal speech Skin: COMMON NORMALS: no rashes or lesions noted GENERAL SKIN EXAM: no rashes or lesions noted Course Vital Signs: Vital signs: Vital Signs Temperature 98.2 F 04/17/23 22:45 Pulse Rate 77 04/18/23 02:23 Respiratory Rate 16 04/18/23 02:23 Blood Pressure 116/79 04/18/23 02:23 Pulse Oximetry 94 04/18/23 02:23 Oxygen Delivery Me thod Room Air 04/17/23 23:24 MDM - Chest Pain Medical Decision Making Pain was relieved down to a 1 out of 10 with nitroglycerin and aspirin in the ambulance. He does not want anything else for pain. Chest x-ray is negative. His vitals are good. CBC is normal. Blood sugar is 326. EKG shows a normal sinus rhythm with a rate of 75, normal axis, normal intervals, and no acute ST wave changes. First troponin is 13. 2 hour is pending. 2-hour delta troponin is 161. Patient is still pain-free. He received aspirin and nitroglycerin earlier. He is given Lovenox 1 mg/kg. He will be placed in the [facility]. Hospitalist agrees to admission, and will see the patient. Second EKG was still normal without ST wave changes. Lab Data 04/17/23 22:34 10/29/23 22:34 Radiology Impressions Chest X-Ray 04/17/23 22:47 IMPRESSION: 1. Negative for infiltrate. 2. Emphysematous changes. Laboratory Results WBC 5.78 10^3/uL (3.29-11.43) 04/17/23 22:34 RBC 5.29 10^6/uL (3.85-5.65) 04/17/23 22:34 Hgb 15.50 g/dL (11.27-16.99) 04/17/23 22:34 Hct 48.3 % (37-53) 04/17/23 22:34 MCV 91.3 fl (82-101) 04/17/23 22:34 MCH 29.3 pg (27-33) 04/17/23 22:34 MCHC 32.1 g/dL (30-55) 04/17/23 22:34 RDW 12.2 % (12.1-15.1) 04/17/23 22:34 Plt Count 223 10^3/cmm (157-399) 04/17/23 22:34 MPV 11.7 fL (7.4-10.4) H 04/17/23 22:34 Neut % (Auto) 56.5 % 04/17/23 22:34 Lymph % (Auto) 34.4 % 04/17/23 22:34 [place] % (Auto) 5.2 % 04/17/23 22:34 Eos % (Auto) 3.1 % 04/17/23 22:34 Baso % (Auto) 0.5 % 04/17/23 22:34 Neut # (Auto) 3.26 10^3/uL (1.8-7.7) 04/17/23 22:34 Lymph # (Auto) 2.0 10^3/uL (0.8-4.8) 04/17/23 22:34 [place] # (Auto) 0.3 10^3/uL (0.2-0.9) 04/17/23 22:34 Eos # (Auto) 0.2 10^3/uL (0.0-0.8) 04/17/23 22:34 Baso # (Auto) 0.0 10^3/uL (0.0-0.1) 04/17/23 22:34 Nucleated RBC % (auto) 0 % 04/17/23 22:34 Nucleated RBCs # 0.0 /100WBC 04/17/23 22:34 Sodium 139 mmol/L (136-145) 04/17/23 22:34 Potassium 4.9 mmol/L (3.5-5.1) 04/17/23 22:34 Chloride 104 mmol/L (98-107) 04/17/23 22:34 Carbon Dioxide 27 mmol/L (22-29) 04/17/23 22:34 Anion Gap 12.9 (5-19) 04/17/23 22:34 BUN 19 mg/dL (8-23) 04/17/23 22:34 Creatinine 1.0 mg/dL (0.7-1.2) 04/17/23 22:34 GFR Calculation 75.5 mL/min (90-130) L 04/17/23 22:34 Glucose 326 mg/dL (65-115) H 04/17/23 22:34 Calculated Osmolality 303 mOsm/kg (285-295) H 04/17/23 22:34 Calcium 9.2 mg/dL (8.5-10.5) 04/17/23 22:34 Total Bilirubin 0.2 mg/dL (0.15-1.2) 04/17/23 22:34 AST 12 U/L (0-40) 04/17/23 22:34 ALT 10 U/L (0-41) 04/17/23 22:34 Alkaline Phosphatase 87 U/L (40-130) 04/17/23 22:34 Troponin T Baseline 13 ng/L (0-15) 04/17/23 22:34 Troponin T 120 Minute 174.3 ng/L (0-15) H 04/18/23 00:32 Delta Troponin T 161.3 ABS# (0-10) H* 04/18/23 00:32 NT-Pro-B Natriuret Pep 36 pg/mL (0-125) 04/17/23 22:54 Total Protein 6.3 g/dL (6.6-8.7) L 04/17/23 22:34 Albumin 4.3 g/dL (3.5-5.2) 04/17/23 22:34 Globulin 2.0 g/dL (1.3-4.6) 04/17/23 22:34 All radiology interpretation(s) finalized by discharge Discharge Plan Discharge Patient Disposition: Admitted As Inpatient Admit Provider: Bandar Hooks Clinical Impression: NSTEMI (non-ST elevated myocardial infarction) Condition: Stable Coding Level of Care Code 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
[2023-04-18 01:01] LABS: Troponin 5 2HR 174.3 ng/L (0-15); Troponin 5 2HR Delta 161.3 ABS# (0-10)
[2023-04-18] MEDS: enoxaparin 60 mg/0.6 mL Syringe SUBCUT ×3 (01:17→20:35)
--- NOTE | 2023-04-18 02:45 | PM.HP ---
Providers/Chief Complaint Admitting Physician: Bandar Hooks Primary Care Provider: Fabiola Gibson Chief Complaint: CHEST PAIN History of Present Illness Phong Patino is a 62 year old gentleman with history of CAD, prior coronary artery stenting in 2019, DM 2, HTN, HLD, smoking was watching a TV show on his phone when he started having chest pain and pressure, was at rest at the time, pain relieved by nitroglycerin and aspirin in ER down to 06/29, on assessment in ER found to have positive troponin delta baseline 13, 2-hour up to 174.3. Currently free of chest pain or pressure. He has been having his usual smokers cough. Denies pain on inspiration. Chest x-ray with emphysema, without acute findings. Review of Systems Const: Denies: fever(s), chills, body aches or malaise ENMT: Denies: throat pain Card: Reports: chest pain; Denies: edema, pre-syncope or dyspnea on exertion Resp: Reports: other (Chronic smoker's cough); Denies: dyspnea, change in phlegm color or hemoptysis GI: Denies: abdominal pain, nausea, vomiting, diarrhea, constipation, hematochezia or melena : Denies: flank pain, difficulty urinating, urinary frequency or hematuria Musc: Denies: back pain, joint swelling or joint redness Skin/Breast: Denies: rash or new lesions Neuro: Denies: headache(s), dizziness or confusion Medications/Allergies Home Medications Medication Instructions Recorded Confirmed Last Taken Type Levemir FlexTouch U-100 Insuln 50 unit SUBCUT DAILY 08/01/19 04/18/23 Unknown History Trulicity See Rx Instructions .Route .COMPLEX 08/01/19 04/18/23 07/25/19 08:00 History aspirin 81 mg tablet,delayed 81 mg PO DAILY 08/01/19 04/18/23 Unknown History release bupropion HCl 150 mg 24 hr tablet, 150 mg PO QAM 08/01/19 04/18/23 Unknown History extended release cyanocobalamin (vitamin B-12) 500 500 mcg PO DAILY 08/01/19 04/18/23 Unknown History mcg tablet (Vitamin B-12) ezetimibe 10 mg tablet 10 mg PO DAILY 08/01/19 04/18/23 Unknown History insulin lispro 100 unit/mL 10 unit SUBCUT TID 08/01/19 04/18/23 Unknown History subcutaneous pen (Humalog KwikPen (U-100) Insulin) omega-3 fatty acids 1,000 mg 2,000 mg PO BID 08/01/19 04/18/23 Unknown History capsule rosuvastatin 40 mg tablet 40 mg PO DAILY 08/01/19 04/18/23 Unknown History clopidogrel 75 mg tablet 75 mg PO DAILY #90 tabs 09/16/20 04/18/23 Unknown Rx metoprolol tartrate 25 mg tablet 25 mg PO BID #60 tabs 12/30/20 04/18/23 Unknown Rx zdktiqypns-tmejwtxdglomz-ifnnkmvl 1 cap PO Q4H PRN headache #20 caps 05/19/22 04/18/23 Unknown Rx 50 mg-300 mg-40 mg capsule (Fioricet) naproxen sodium 550 mg tablet 550 mg PO Q12H PRN pain #30 tabs 05/19/22 04/18/23 Unknown Rx (Anaprox DS) naproxen 500 mg tablet (Naprosyn) 500 mg PO BID PRN pain #20 tabs 06/20/22 04/18/23 Unknown Rx amitriptyline 25 mg tablet 25 mg PO DAILY 04/14/23 04/18/23 Unknown History Allergies Allergy/AdvReac Type Severity Reaction Status Date / Time No Known Allergies Allergy Verified 04/14/23 12:50 PFSH Acute PFSH: Medical History Coronary artery disease Diabetes Continue with home Trulicity Hyperlipidemia Continue rosuvastatin Hypertension Continue on metoprolol Migraine headache NSTEMI (non-ST elevated myocardial infarction) Presence of stent in left circumflex coronary artery Tobacco abuse Strongly encouraged cessation Surgical History History of orthopedic surgery L elbow surgery Family History Father CAD (coronary artery disease) Mother CAD (coronary artery disease) Social History Smoking and tobacco/nicotine status: current every day tobacco/nicotine user Quit status (tobacco/nicotine): has tried quititng Alcohol intake: current Alcohol intake frequency: holidays/special occasions only Vitals/I&O/Wt Last Vital Signs Temp 98.2 F 04/17/23 22:45 Pulse 77 04/18/23 02:23 Resp 16 04/18/23 02:23 BP 116/79 04/18/23 02:23 Pulse Ox 94 04/18/23 02:23 O2 Del Method Room Air 04/17/23 23:24 Weight last 48 hrs Weight 61.689 kg Physical Exam Narrative: Accompanied by family. Const: COMMON NORMALS: patient oriented x3 and alert GENERAL APPEARANCE: cooperative ORIENTATION/CONSCIOUSNESS: Yes awake HENMT: COMMON NORMALS: oropharynx normal Neck/C-Spine: COMMON NORMALS: no JVD Resp: COMMON NORMALS: normal respiratory effort and clear to auscultation bilaterally AUSCULTATION: clear to auscultation bilaterally Cardio: COMMON NORMALS: no JVD, regular rhythm, S1 normal heart sound present, S2 normal heart sound present and No murmurs present (Cardio) RHYTHM: regular rhythm HEART SOUNDS: S1 normal heart sound present and S2 normal heart sound present GI: COMMON NORMALS: Normal to inspection, nondistended, normoactive bowel sounds present, Soft to palpation and non-tender PALPATION: Yes Soft to palpation Extremity: COMMON NORMALS: no joint enlargement and no pedal edema Neuro: COMMON NORMALS: patient oriented x3 and moves all extremities SENSORIUM/ORIENTATION: Yes alert Skin: COMMON NORMALS: no rashes or lesions noted GENERAL SKIN EXAM: no rashes or lesions noted Data 04/17/23 22:34 04/17/23 22:34 A&P Assessment and plan (1) NSTEMI (non-ST elevated myocardial infarction): Chest pain so far has resolved with nitroglycerin and aspirin by EMS. Reviewed CBC, CMP, chest x-ray, NT-proBNP. Reviewed troponin, noted to rise with positive delta from baseline 13. Discussed with ER physician. ER documentation reviewed. He has received aspirin, continue. Started on anticoagulation, continue, monitor, at risk of bleeding with anticoagulation, DAPT. Reassess CBC. EKG reviewed, given that COVID signs of NJ. Appears to have some J-point elevation inferiorly. This is not new compared to EKG in last June. Telemetry monitoringdue to risk of life threatening arrhythmia with NSTEMI. Nitroglycerin as needed. Obtain echocardiogram. With prior NJ, NSTEMI, at risk of heart failure, other complications. Cardiology consultation. Discussed with him given his risk factors, history, risk, pulm troponin anticipate he may require coronary angiography. Will keep NPO for now. Hold NSAIDs, discontinue at discharge. (2) Chest pain: As above (3) Tobacco abuse: Discussed with him smoking cessation for 5 minutes, he understands that he needs to quit. He has tried to quit in the past and stop smoking entirely for about 6 months. He states that then he had some family movement with him who smoke and also have brought some stresses into his life and he has started smoking again. Encouraged him to quit. He understands. Continue smoking expose them to risk of cardiovascular disease including NJ and stroke as well as other illnesses. Requesting nicotine replacement as needed. Plan CAD: prior stenting in 2019. Continue ASA, Plavix, Statin, BB. Will DC NSAID at discharge. DM2: accuchecks, SSI HTN: monitor BP. Continue metoprolol. Attestations Medical Necessity Statement*: Admission of over 2 midnights anticipated for assessment and management of NSTEMI in a gentleman with underlying coronary disease with prior stenting, diabetes and additional comorbidities as above. Diagnoses NSTEMI (non-ST elevated myocardial infarction) I21.4 Chest pain R07.9 Tobacco abuse Z72.0
--- NOTE | 2023-04-18 02:59 | USCV_ITS ---
hPong Patino Age: 62 Gender: M : 1960 Exam Date: 04/18/2023 11:32 Ordering Phys: Bandar Hooks MD Technologist: Mark Weinberg [place] [facility] [place]: [place]STEMI, history CAD BP: 135 / 92 HR: 76 Rhythm: Sinus Technical Quality: Adequate MEASUREMENTS (Male / Female) Normal Values 2D ECHO LV Diastolic Diameter PLAX 3.5 cm 4.2 - 5.9 / 3.9 - 5.3 cm LV Systolic Diameter PLAX 2.4 cm IVS Diastolic Thickness 1.3 cm 0.6 - 1.0 / 0.6 - 0.9 cm IVS Systolic Thickness 1.3 cm LVPW Diastolic Thickness 1.4 cm 0.6 - 1.0 / 0.6 - 0.9 cm LVPW Systolic Thickness 1.3 cm LVOT Diameter 2.1 cm LV Ejection Fraction 2D Teich 62.2 % LV Ejection Fraction MOD 2C 75.2 % LV Ejection Fraction 2C AL 74.8 % LA Diameter 4.1 cm IVC Diameter 1.3 cm M-MODE Aortic Annulus Diameter 3.4 cm LA Ao Ratio MM 1.3 MV E Point Septal Separation 1.1 cm DOPPLER AV Peak Velocity 121.0 cm/s LVOT Peak Velocity 89.0 cm/s AV Area Cont Eq vti 2.8 cm squared AV Area Cont Eq pk 2.5 cm squared MV Area PHT 3.7 cm squared Mitral E to A Ratio 1.1 MV E' Velocity 41.5 cm/s Mitral E to MV E' Ratio 10.0 Mitral E to LV E' Lateral Ratio 9.9 Mitral E to LV E' Septal Ratio 10.1 TR Peak Velocity 112.7 cm/s TR Peak Gradient 5.1 mmHg RV Acceleration Time 0.1 s FINDINGS Left Ventricle Left ventricle is normal in size. LV systolic function is normal with EF of 60 to 65%. No regional wall motion abnormalities are seen. Right Ventricle Normal in size and function Right Atrium Normal in size Left Atrium Normal in size Mitral Valve Structurally normal mitral valve. Trace mitral regurgitation Aortic Valve Structurally normal aortic valve. No significant stenosis or regurgitation. Tricuspid Valve Mild tricuspid regurgitation. Insufficient TR jet to calculate RVSP. Pulmonic Valve Not well-visualized Pericardium Normal Aorta Normal in size IVC Appears to be normal CONCLUSIONS LV systolic function is normal with EF of 60 to 65%. Trace mitral regurgitation Mild tricuspid regurgitation No comparison studies are available. Samy Byrd MD (Electronically Signed) Final Date: 18 April 2023 18:18 S
--- NOTE | 2023-04-18 04:58 | ECG_ITS ---
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 Measurements Intervals [place] Rate: 71 P: 69 AL: 166 QRS: 81 QRSD: 86 T: 85 QT: 372 QTc: 407 Interpretive Statements SINUS RHYTHM POSSIBLE RIGHT VENTRICULAR CONDUCTION DELAY [RSR (QR) IN V1/V2] NONSPECIFIC T-WAVE ABNORMALITY Compared to ECG 04/18/2023 00:52:38 T-wave abnormality now present Electronically Signed On 04-18-2023 7:36:01 CDT by Samy Byrd M.D. [id number]
[2023-04-18 06:04] LABS: Glucose Point of Care 209 mg/dL (70-110)
[2023-04-18] MEDS: pantoprazole DR 40 mg Tablet PO (08:39)
[2023-04-18] MEDS: insulin lispro 100 unit/1 mL SUBCUT ×2 (08:39→20:35)
[2023-04-18] MEDS: clopidogrel 75 mg Tablet PO (08:39)
[2023-04-18] MEDS: aspirin 325 mg Tablet PO ×2 (08:40→15:14)
--- NOTE | 2023-04-18 09:17 | PM.CONSULT ---
Providers/Reason For Consult Consulting Physician/Specialty*: Samy Byrd MD/ Cardiology Reason for Consult*: NSTEMI Requesting Physician: Dr Valadez Attending Physician: Cristian Valadez MD Primary Care Provider: Fabiola Gibson History of Present Illness History of Present Illness Phong Patino is a 62 year old male with past medical history of diabetes, CAD, hypertension, hyperlipidemia post PCI of OM in 2019 has presented with severe substernal chest pain that occurred while he was watching TV last night. Episode was for about 20 to 30 minutes. It resolved after nitroglycerin. His EKG did not show ischemic changes.Troponin increased from a baseline of 13 to 173 at 6 hours. Review of Systems Const: Denies: fever(s) or chills Card: Reports: chest pain and lightheadedness; Denies: palpitations, irregular heart rhythm, swelling of feet/ankles, pre-syncope, dyspnea on exertion, orthopnea or leg pain with exertion Resp: Denies: dyspnea, productive cough or non-productive cough Musc: Reports: back pain; Denies: neck pain Neuro: Denies: headache(s) or dizziness Psych: Denies: anxiety, depression, suicidal ideation or homicidal ideation Zana/Lymph: Denies: easy bruising or easy bleeding Medications/Allergies Home Medications Medication Instructions Recorded Confirmed Last Taken Type Levemir FlexTouch U-100 Insuln 50 unit SUBCUT DAILY 08/01/19 04/18/23 Unknown History Trulicity See Rx Instructions .Route .COMPLEX 08/01/19 04/18/23 07/25/19 08:00 History aspirin 81 mg tablet,delayed 81 mg PO DAILY 08/01/19 04/18/23 Unknown History release bupropion HCl 150 mg 24 hr tablet, 150 mg PO QAM 08/01/19 04/18/23 Unknown History extended release cyanocobalamin (vitamin B-12) 500 500 mcg PO DAILY 08/01/19 04/18/23 Unknown History mcg tablet (Vitamin B-12) ezetimibe 10 mg tablet 10 mg PO DAILY 08/01/19 04/18/23 Unknown History insulin lispro 100 unit/mL 10 unit SUBCUT TID 08/01/19 04/18/23 Unknown History subcutaneous pen (Humalog KwikPen (U-100) Insulin) omega-3 fatty acids 1,000 mg 2,000 mg PO BID 08/01/19 04/18/23 Unknown History capsule rosuvastatin 40 mg tablet 40 mg PO DAILY 08/01/19 04/18/23 Unknown History clopidogrel 75 mg tablet 75 mg PO DAILY #90 tabs 09/16/20 04/18/23 Unknown Rx metoprolol tartrate 25 mg tablet 25 mg PO BID #60 tabs 12/30/20 04/18/23 Unknown Rx jxprfdxrgr-kzdbaiiecazfy-sthdpent 1 cap PO Q4H PRN headache #20 caps 05/19/22 04/18/23 Unknown Rx 50 mg-300 mg-40 mg capsule (Fioricet) naproxen sodium 550 mg tablet 550 mg PO Q12H PRN pain #30 tabs 05/19/22 04/18/23 Unknown Rx (Anaprox DS) naproxen 500 mg tablet (Naprosyn) 500 mg PO BID PRN pain #20 tabs 06/20/22 04/18/23 Unknown Rx amitriptyline 25 mg tablet 25 mg PO DAILY 04/14/23 04/18/23 Unknown History Allergies Allergy/AdvReac Type Severity Reaction Status Date / Time No Known Allergies Allergy Verified 04/14/23 12:50 Current Medications Generic Name Dose Route Start Last Admin Trade Name Freq PRN Reason Stop Dose Admin Aspirin 325 mg 04/18/23 09:00 04/18/23 08:40 Aspirin 325 Mg Tablet PO 325 mg DAILY YUNIOR Administration Clopidogrel Bisulfate 75 mg 04/18/23 09:00 04/18/23 08:39 Clopidogrel 75 Mg Tablet PO 75 mg DAILY YUNIOR Administration Enoxaparin Sodium 60 mg 04/18/23 07:00 04/18/23 08:39 Enoxaparin 60 Mg/0.6 Ml Syringe 1 mg/kg (60 mg) 60 mg SUBCUT Administration [facility] Insulin Human Lispro 0 unit 04/18/23 08:00 04/18/23 08:39 Insulin Lispro 100 Unit/1 Ml SUBCUT 4 unit WM&BEDTIME YUNIOR Administration Protocol Pantoprazole Sodium 40 mg 04/18/23 09:00 04/18/23 08:[address] 40 Mg Tablet PO 40 mg DAILY YUNIOR Administration PFSH Acute PFSH: Medical History Coronary artery disease Diabetes Continue with home Trulicity Hyperlipidemia Continue rosuvastatin Hypertension Continue on metoprolol Migraine headache NSTEMI (non-ST elevated myocardial infarction) Presence of stent in left circumflex coronary artery Tobacco abuse Strongly encouraged cessation Surgical History History of orthopedic surgery L elbow surgery Family History Father CAD (coronary artery disease) Mother CAD (coronary artery disease) Social History Smoking and tobacco/nicotine status: current every day tobacco/nicotine user Quit status (tobacco/nicotine): has tried quititng Alcohol intake: current Alcohol intake frequency: holidays/special occasions only Vitals/I&O/Wt Last Vital Signs Temp 97.9 F 04/18/23 03:00 Pulse 80 04/18/23 06:00 Resp 20 H 04/18/23 04:00 BP 131/73 04/18/23 04:00 Pulse Ox 93 04/18/23 03:00 O2 Del Method Room Air 04/18/23 03:00 04/17/23 04/18/23 04/18/23 22:59 06:59 14:59 Output Total 0 / 0 Balance 0 / 0 Weight last 48 hrs Weight 140 lb 14.4 oz Weight 136 lb Physical Exam Narrative: GENERAL: Patient is alert, awake and oriented x3. [] NECK: No jugular vein distension. [] HEENT: No cyanosis. No icterus. No pallor. [] HEART: Regular S1 and S2. No murmur, rub or gallop. [] LUNGS: Clear to auscultate bilaterally. [] CENTRAL NERVOUS SYSTEM: Grossly nonfocal. [] EXTREMITIES: Lower extremities with 1+ edema bilaterally. Data 04/17/23 22:34 04/17/23 22:34 A&P Assessment and plan (1) NSTEMI (non-ST elevated myocardial infarction): (2) Hypertension: Qualifiers: Hypertension type: essential hypertension Qualified Code(s): I10 - Essential (primary) hypertension (3) Hyperlipidemia: Qualifiers: Hyperlipidemia type: other hyperlipidemia Qualified Code(s): E78.49 - Other hyperlipidemia (4) Diabetes: (5) Coronary artery disease: Plan Patient presented with typical chest pain with significant troponin elevation consistent with non-ST elevation VA. We will proceed with coronary angiogram with possible percutaneous coronary intervention. Risks and benefits of the procedure been discussed with the patient. Have breakfast and then have n.p.o. after that for coronary angiogram at 4 PM. Continue aspirin and plavix Continue anticoagulation ECHO ordered Thank you for involving us with care of this patient. We will continue to follow. please call with questions. Consult Attestations Medical Necessity Statement: Care expected to cross 2 midnights. Coding Level of Care Code Acute Code for [facility] Fwd Diagnoses NSTEMI (non-ST elevated myocardial infarction) I21.4 Hypertension I10 Hypertension type: essential hypertension Hyperlipidemia E78.49 Hyperlipidemia type: other hyperlipidemia Diabetes E11.9 Coronary artery disease I25.10
--- NOTE | 2023-04-18 11:13 | PM.MISC ---
Miscellaneous Note Note: Cardiology consulted Plan for angiogram later in the day No active chest pain BNP 36 Echo is pending Hemodynamic stable Currently on room air
[2023-04-18 11:47] LABS: Glucose Point of Care 180 mg/dL (70-110)
--- NOTE | 2023-04-18 11:56 | PC.SOCIAL ---
IMM Update pg 2 of IMM updated and reviewed w/ patient. Copy provided and Copy dated, initialed and placed in chart.
--- NOTE | 2023-04-18 13:25 | XACV_ITS ---
Exam Room: 2 Ht: 168 cm Wt: 64 kg BSA: 1.72 m2 Gender: Male : 1960 Any Known Allergies: No known allergies Exam Priority: Routine Procedure(s): Procedure Description: Diagnostic procedure Procedure Description: Left Heart Catheterization Procedure Description: Left ventriculography Procedure Description: Coronary Angiography Diagnostic Cath Status: Urgent Diagnostic Findings * Left Main has mild luminal irregularities. * Mid to distal Circumflex: subtotal occlusion, KAYDEN: 2 flow. First Obtuse Marginal Branch Segment: severe 90% stenosis, KAYDEN: 3 flow. * Mid Right Coronary Artery: chronic total occlusion, KAYDEN: 0 flow. Collateral blood supply left to right seen. * Mid Left Anterior Descending: significant 80% stenosis, KAYDEN: 3 flow. * 1st Diagonal: obstructive 60% stenosis, KAYDEN: 3 flow. * Coronary angiography shows co-dominance. Conclusions 1. Severe multivessel coronary artery disease.. 2. Normal left ventricular systolic function. Ejection fraction of 50%. Recommendations * We will transfer patient to tertiary care center for CABG. Interventional RX Recommendation: CABG Diagnostic RX Recommendation: CABG Anticoagulation: Heparin Ventriculography Ejection Fraction: 50.0 % Pressures Phase:Rest AO : 94 / 65 ( 79 ) @ 5:40:00 PM 97 / 66 ( 82 ) @ 5:42:00 PM 123 / 72 ( 94 ) @ 5:47:00 PM 125 / 73 ( 96 ) @ 5:47:00 PM LV : 125 / -5 / 16 @ 5:46:00 PM 121 / 3 / 22 @ 5:47:00 PM 122 / 4 / 23 @ 5:47:00 PM Valves Phase:DefaultPhase AV : 0.0 @ 4:54:34 PM AV Mean Gradient: 0.0 @ 4:54:34 PM Clinical Evaluation EBL: 5mL-10mL Procedural Details Procedure Consent Obtained. Current Diagnosis : NSTEMI. Pre-Procedure Time Out. Identified patient by full name and date of as verbalized by the patient/guarantor. Does the consent match the physician's order: Yes. Accurate & Complete Informed Consent: Yes. Inpatient/Outpatient History & Physical on Chart: Yes. If H&P is completed, is and addenduem needed: No; If yes, is the addendum complete: N/A. Visualize and Verify Site with Patient/Guarantor: N/A. Relevant Radiology Images available: Yes. Pre-op teaching completed and patient verbalized understanding. The risks, benefits, and alternatives of sedation and/or procedure were discussed by physician. The patient agrees to continue. Procedure started. [facility] Clinical Fraility Score: 3: Managing Well. Advertising Executive Indications: ACS > 24 hours. Chest Pain Symptom Assessment: Typical Angina Symptoms. Correct patient, site and procedure confirmed by cath team. Current diagnosis: NSTEMI. PERRLA. Strong, equal hand account general manager bilaterally. Lungs clear x 5 lobes. IV Site on Arrival: 18 gauge in the right anticubital. IV Fluids: 0.9% NaCl at KVO. 0 mL infused prior to recyclable materials collector. Physician arrived. Pre Procedural Pulses: right radial was 2+. Oxygen started at 2liters/min via nasal canula. right groin was prepped with chloroprep then draped in the usual sterile fashion. right radial was prepped with chloroprep then draped in the usual sterile fashion. Baseline sample Acquired. HR: 76 BPM. Physician scrubbed in. Immediate Pre-Procedure Time Out. Correct Patient: Yes; Correct Procedure: Yes; Correct Site: Yes; Correct Patient Position: Yes; Correct Supplies: Yes; Dried Flammable Prep: Yes; Blood Products Available: N/A;. Lidocaine 1% infiltrated to the right radial. Arterial access obtained. Multiple views taken of left coronary artery. Catheter redirected to the RCA. Multiple views taken of right coronary artery. Catheter removed over the standard wire. A 5 macedonian Angled Pig catheter in over wire. A 5 macedonian TIG catheter in over wire. EDP Sample taken: LV 125/-6,16; HR: 73 BPM; SpO2: 95%. LV gram performed in CHÁVEZ @ 10 mL/second for a total of 30 mL. EDP Sample taken: LV 121/3,22; HR: 76 BPM; SpO2: 95%. Pullback taken: LV 122/4,23; AO 123/72(94); Mean: 0mmHg, Peak to Peak: 0mmHg, SEP: 17sec/min; HR: 75 BPM; SpO2: 95%. Catheter removed over the exchange wire. A TR Band was successful obtaining hemostatsis at the Right Radial artery insertion site. Post Procedure: Pulses reassessed and unchanged. PERRLA. Strong, equal hand account general manager bilaterally. No VTE prophylaxis required. Medication's Wasted: Nitro = 49.8 mg. Medication's Wasted: Lidocaine 1% = 2 mL. Medication's Wasted: Heparin = 1000 units. Medication's Wasted: Other = Fentanyl 50mcg Versed 1 mg. Total IV fluids: 23 mL. Post-op diagnosis: CAD. Complications: None. Estimated blood loss: 5mL-10mL. Responsiveness - Normal response to verbal stimuli; alert and oriented, PERRLA. Airway - Unaffected, no intervention required; spontaneous ventilation. Circulation: W/N/L, pulses unchanged. Nausea/Vomiting: No. Procedure completed. Patient transferred by wheelchair to 1st floor. Vital chart was stopped. Access Site Site: Right Radial artery Sheath Size: 6 Fr Hemostasis Method: TR Band Hemostasis Success: Successful Procedure Medications Start: 4:30 PM Stop: 4:30 PM Medication: Versed Amount: 1 mg Route: I.V. Start: 4:30 PM Stop: 4:30 PM Medication: Fentanyl Amount: 50 mcg Route: I.V. Start: 4:38 PM Stop: 4:38 PM Medication: Nitrogylcerin Amount: 200 mcg Route: I.A. Start: 4:40 PM Stop: 4:40 PM Medication: Heparin Amount: 5000 units Route: I.V. I, the attending physician, have reviewed and verified all procedure medications. Yes, all medications given per verbal order History/Risk Factors Hypertension: Yes Dyslipidemia: Yes Peripheral Arterial Disease (PAD): No Myocardial Infarction (TX): No Obesity: No Renal Disease: No Tobacco Use: Current/Recent(w/in 1 year) Prior Interventions PCI: Yes CABG: No Valve Surgery: No Date of PCI: 08/02/2019 Report Signatures Finalized by Samy Byrd MD on 04/18/2023 05:40 PM
[2023-04-18] MEDS: diphenhydrAMINE 50 mg Capsule PO (15:13)
[2023-04-18] MEDS: sodium chloride 0.9% 1,000 ML 50 ML IV (15:14)
--- NOTE | 2023-04-18 16:32 | W.PM.OPSUD ---
Surgery/Procedure H&P Update DATE OF PROCEDURE: April 18, 2023 DATE H&P PERFORMED: 04/18/23 H&P UPDATE INFORMATION: I have reviewed H&P completed within last 30 days, I have examined patient prior to procedure and No changes to prior documentation PREOP DIAGNOSIS: NSTEMI PRIMARY INDICATION FOR PROCEDURE: NSTEMI PLANNED PROCEDURE: Left heart cath with possible percutaneous coronary intervention PATIENT REASSESSED PRIOR TO SEDATION, WITH NO CHANGE NOTED: Yes PHYSICAL EXAM: alert, oriented x 3, clear to auscultation bilaterally and regular rate & rhythm AIRWAY EVAL/ANESTHESIA PLAN: normal airway, ASA III, Local Anesthesia, Risks, benefits & alternatives of sedation and/or procedure discussed and Patient agrees to continue as planned ADDITIONAL INFORMATION: Moderate sedation
[2023-04-18 17:29] LABS: Glucose Point of Care 126 mg/dL (70-110)
[2023-04-18] MEDS: sodium chloride 0.9% 1,000 ML 100 ML IV (20:36)
[2023-04-18 21:07] LABS: Glucose Point of Care 245 mg/dL (70-110)
--- NOTE | 2023-04-18 21:10 | PC.NURSE ---
TR band removed at 2107. No hematoma noted. Gauze and tegaderm applied to wrist. Vitals within normal limits. Patient resting comfortably in bed watching TV.
[2023-04-19] VITALS (52 sets, daily range): BP systolic 107–150; BP diastolic 71–99; PULSE 67–84; RESP 3–24; O2SAT 94; BMI 22.5
[2023-04-19 04:16] LABS: Basophils % 0.5 %; Eosinophils # 0.1 10^3/uL (0.0-0.8); Hematocrit 42.6 % (37-53); Lymphocytes # 1.9 10^3/uL (0.8-4.8); Lymphocytes % 21.4 %; Mean Corpuscular HGB Conc 31.9 g/dL (30-55); Mean Corpuscular Volume 90.8 fl (82-101); Mean Platelet Volume 11.3 fL (7.4-10.4); Monocytes # 0.3 10^3/uL (0.2-0.9); Monocytes % 3.6 %; Neutrophils # 6.34 10^3/uL (1.8-7.7); Neutrophils % 73.2 %; Nucleated Red Blood Cells % 0 %; Platelet Count 187 10^3/cmm (157-399); Red Blood Count 4.69 10^6/uL (3.85-5.65); Red Cell Distribution Width 12.1 % (12.1-15.1); White Blood Count 8.66 10^3/uL (3.29-11.43)
[2023-04-19 04:38] LABS: Anion Gap 11.4 (5-19); Blood Urea Nitrogen 15 mg/dL (8-23); Carbon Dioxide 27 mmol/L (22-29); Chloride 103 mmol/L (98-107); Glomerular Filtration Rate 75.5 mL/min (90-130); Glucose 137 mg/dL (65-115); Osmolality Calculated 287 mOsm/kg (285-295); Potassium 4.4 mmol/L (3.5-5.1); Sodium 137 mmol/L (136-145)
[2023-04-19] MEDS: enoxaparin 60 mg/0.6 mL Syringe SUBCUT (06:03)
[2023-04-19 06:12] LABS: Glucose Point of Care 116 mg/dL (70-110)
--- NOTE | 2023-04-19 07:38 | P.PN_ITS ---
Subjective Subjective: Patient is doing well. No chest pain. 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 Vitals/I&O/Wt Last Vital Signs Temp 97.9 F 04/18/23 23:46 Pulse 78 04/19/23 06:20 Resp 17 04/19/23 06:20 BP 128/99 04/19/23 06:20 Pulse Ox 96 04/18/23 23:46 O2 Del Method Room Air 04/18/23 23:46 04/18/23 04/19/23 04/19/23 22:59 06:59 14:59 Intake Total 440 / 660 1618.333 / 2278.333 Balance 440 / 660 1618.333 / 2278.333 Weight last 48 hrs Weight 139 lb 8 oz Weight 140 lb 14.4 oz Weight 136 lb Physical Exam Narrative: GENERAL: Patient is alert, awake and oriented x3. [] NECK: No jugular vein distension. [] HEENT: No cyanosis. No icterus. No pallor. [] HEART: Regular S1 and S2. No murmur, rub or gallop. [] LUNGS: Clear to auscultate bilaterally. [] CENTRAL NERVOUS SYSTEM: Grossly nonfocal. [] EXTREMITIES: Lower extremities with 1+ edema bilaterally. Data 04/19/23 03:46 04/19/23 03:46 A&P Assessment and plan (1) NSTEMI (non-ST elevated myocardial infarction): (2) Hypertension: Qualifiers: Hypertension type: essential hypertension Qualified Code(s): I10 - Essential (primary) hypertension (3) Hyperlipidemia: Qualifiers: Hyperlipidemia type: other hyperlipidemia Qualified Code(s): E78.49 - Other hyperlipidemia (4) Diabetes: (5) Coronary artery disease: Plan Patient has multivessel CAD and is being transferred to [facility] for cabg. Continue aspirin. Plavix held. Continue anticoagulation ECHO shows normal LV systolic function. Thank you for involving us with care of this patient. please call with questions. Attestations Medical Necessity Statement*: Care expected to cross 2 midnights. Coding Level of Care Code Acute Code for [facility] Diagnoses NSTEMI (non-ST elevated myocardial infarction) I21.4 Hypertension I10 Hypertension type: essential hypertension Hyperlipidemia E78.49 Hyperlipidemia type: other hyperlipidemia Diabetes E11.9 Coronary artery disease I25.10
[2023-04-19] MEDS: aspirin 325 mg Tablet PO (08:08)
[2023-04-19] MEDS: pantoprazole DR 40 mg Tablet PO (08:08)
--- NOTE | 2023-04-19 08:43 | PC.CHAP ---
Pastoral Care Encounter/Spiritual Assessment Type of Contact [] Declined used car lot porter visit [] Patient/Family/Request visit [] Outpatient visit [] Follow-up visit [] Physician referral [] Code/Alert [x] Routine visit [] Staff referral [] Actively dying [] Patient sleeping [] Family support [] [] Out of room [] Palliative care [] [] Receiving care in room [] Pre-surgical visit [] Trauma [] Long length of stay [] ICU visit [] Other: Relational/Emotional Strength [x] Patient feels connected with others/family/visitors/staff [] Distress [] Loneliness/isolation [] Abandonment Spirituality of Patient [x] Person of Sugey [] Attends Latter Day of their Sugey [x] Believes in Prayer [] Reads Bible or Confucianist materials [] There are Spiritual issues to be addressed Floorworker Distributor Interventions [x] Prayer [x] Active listening [] Non-anxious presence [x] Spiritual/emotional support [] Crisis/trauma care [] Spiritual counseling [] Bereavement support [] Provided bereavement packet [] Provided Bible/devotional materials [] Provided toy/stuffed animal, coloring book to patient or family member [] Provided Communion [] Anointing/[place] [] Salvation x[] Completed spiritual assessment [] Other: Impact on Illness or Injury [] Angry [] Fearful [] Anxious [] Often cries [] Exhaustion [] Unable to work [] Unable to attend rastafarian [] Unable to walk/stand [] Unable to read [] Unable to drive [] Unable to eat/drink [] Unable to sleep [] Unable to be with family [] Patient intubated [] Other: Summary Time spent with patient 5 min
--- NOTE | 2023-04-19 11:23 | P.TS_ITS ---
Transfer Summary Providers Date of Admission: 04/18/23 02:18 Date of Discharge/Transfer: 04/19/23 Attending Provider at Admission: Bandar Hooks Attending Provider at Transfer: Cristian Valadez MD Primary Care Provider: Fabiola Gibson Transfer Plans: Anticipated date of transfer: 04/19/23 . Diagnoses at Discharge Discharge Diagnosis (1) NSTEMI (non-ST elevated myocardial infarction): Status: Acute (2) Hypertension: Status: Acute Qualifiers: Hypertension type: essential hypertension Qualified Code(s): I10 - Essential (primary) hypertension Permanent problem details: Continue on metoprolol (3) Hyperlipidemia: Status: Acute Qualifiers: Hyperlipidemia type: other hyperlipidemia Qualified Code(s): E78.49 - Other hyperlipidemia Permanent problem details: Continue rosuvastatin (4) Diabetes: Status: Acute Permanent problem details: Continue with home Trulicity (5) Coronary artery disease: Status: Acute Reason for Visit Reason for Visit CHEST PAIN Hospital Course Hospital Course 62 male who present to the hospital after experiencing chest pain while he was at rest watching a season on his phone, patient was diagnosed with non-STEMI, cardiology was consulted, coronary angiogram was done next day he was put on ACS protocol,Patient had coronary angiogram 04/18 that showed severe multivessel CAD involving LAD, 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 COBRA form signed. Family updated. Patient and family in agreement. Echo showed preserved ejection fraction. Troponin peaked at 175 Physical Exam Narrative: GCS 15 Patient is chest pain-free Awake and alert Nonfocal neuro exam Currently on room air TS Data Studies Completed and Pending Pending at discharge Category Date Time Status Basic Metabolic Panel AM LABS Lab 04/20/23 04:00 Ordered Basic Metabolic Panel AM LABS Lab 04/21/23 04:00 Ordered Complete Blood Count w/Auto AM LABS Lab 04/20/23 04:00 Ordered Complete Blood Count w/Auto AM LABS Lab 04/21/23 04:00 Ordered Labs from last 24 hours 04/19/23 04/19/23 04/19/23 06:05 03:46 03:46 WBC 8.66 RBC 4.69 Hgb 13.60 Hct 42.6 MCV 90.8 MCH 29.0 MCHC 31.9 RDW 12.1 Plt Count 187 MPV 11.3 H Neut % (Auto) 73.2 Lymph % (Auto) 21.4 [place] % (Auto) 3.6 Eos % (Auto) 1.0 Baso % (Auto) 0.5 Neut # (Auto) 6.34 Lymph # (Auto) 1.9 [place] # (Auto) 0.3 Eos # (Auto) 0.1 Baso # (Auto) 0.0 Nucleated RBC % (auto) 0 Nucleated RBCs # 0.0 Sodium 137 Potassium 4.4 Chloride 103 Carbon Dioxide 27 Anion Gap 11.4 BUN 15 Creatinine 1.0 GFR Calculation 75.5 L Glucose 137 H POC Glucose 116 H Calculated Osmolality 287 Calcium 9.0 04/18/23 04/18/23 04/18/23 20:27 17:26 11:44 WBC RBC Hgb Hct MCV MCH MCHC RDW Plt Count MPV Neut % (Auto) Lymph % (Auto) [place] % (Auto) Eos % (Auto) Baso % (Auto) Neut # (Auto) Lymph # (Auto) [place] # (Auto) Eos # (Auto) Baso # (Auto) Nucleated RBC % (auto) Nucleated RBCs # Sodium Potassium Chloride Carbon Dioxide Anion Gap BUN Creatinine GFR Calculation Glucose POC Glucose 245 H 126 H 180 H Calculated Osmolality Calcium Completed Studies During Hospitalization Category Date Time 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 echo complete* [id number] Routine Ultrasound 04/18/23 02:59 Completed Laboratory Last Values WBC 8.66 10^3/uL (3.29-11.43) 04/19/23 03:46 RBC 4.69 10^6/uL (3.85-5.65) 04/19/23 03:46 Hgb 13.60 g/dL (11.27-16.99) 04/19/23 03:46 Hct 42.6 % (37-53) 04/19/23 03:46 MCV 90.8 fl (82-101) 04/19/23 03:46 MCH 29.0 pg (27-33) 04/19/23 03:46 MCHC 31.9 g/dL (30-55) 04/19/23 03:46 RDW 12.1 % (12.1-15.1) 04/19/23 03:46 Plt Count 187 10^3/cmm (157-399) 04/19/23 03:46 MPV 11.3 fL (7.4-10.4) H 04/19/23 03:46 Neut % (Auto) 73.2 % 04/19/23 03:46 Lymph % (Auto) 21.4 % 04/19/23 03:46 [place] % (Auto) 3.6 % 04/19/23 03:46 Eos % (Auto) 1.0 % 04/19/23 03:46 Baso % (Auto) 0.5 % 04/19/23 03:46 Neut # (Auto) 6.34 10^3/uL (1.8-7.7) 04/19/23 03:46 Lymph # (Auto) 1.9 10^3/uL (0.8-4.8) 04/19/23 03:46 [place] # (Auto) 0.3 10^3/uL (0.2-0.9) 04/19/23 03:46 Eos # (Auto) 0.1 10^3/uL (0.0-0.8) 04/19/23 03:46 Baso # (Auto) 0.0 10^3/uL (0.0-0.1) 04/19/23 03:46 Nucleated RBC % (auto) 0 % 04/19/23 03:46 Nucleated RBCs # 0.0 /100WBC 04/19/23 03:46 Sodium 137 mmol/L (136-145) 04/19/23 03:46 Potassium 4.4 mmol/L (3.5-5.1) 04/19/23 03:46 Chloride 103 mmol/L (98-107) 04/19/23 03:46 Carbon Dioxide 27 mmol/L (22-29) 04/19/23 03:46 Anion Gap 11.4 (5-19) 04/19/23 03:46 BUN 15 mg/dL (8-23) 04/19/23 03:46 Creatinine 1.0 mg/dL (0.7-1.2) 04/19/23 03:46 GFR Calculation 75.5 mL/min (90-130) L 04/19/23 03:46 Glucose 137 mg/dL (65-115) H 04/19/23 03:46 POC Glucose 116 mg/dL (70-110) H 04/19/23 06:05 Calculated Osmolality 287 mOsm/kg (285-295) 04/19/23 03:46 Calcium 9.0 mg/dL (8.5-10.5) 04/19/23 03:46 Total Bilirubin 0.2 mg/dL (0.15-1.2) 04/17/23 22:34 AST 12 U/L (0-40) 04/17/23 22:34 ALT 10 U/L (0-41) 04/17/23 22:34 Alkaline Phosphatase 87 U/L (40-130) 04/17/23 22:34 Troponin T Baseline 13 ng/L (0-15) 04/17/23 22:34 Troponin T 120 Minute 174.3 ng/L (0-15) H 04/18/23 00:32 Delta Troponin T 161.3 ABS# (0-10) H* 04/18/23 00:32 Troponin T Hi Sens 6Hr 173.0 ng/L (0-15) H 04/18/23 04:51 Troponin T Hi Sens 6Hr Delta 160.0 ng/L (0-12) H* 04/18/23 04:51 NT-Pro-B Natriuret Pep 36 pg/mL (0-125) 04/17/23 22:54 Total Protein 6.3 g/dL (6.6-8.7) L 04/17/23 22:34 Albumin 4.3 g/dL (3.5-5.2) 04/17/23 22:34 Globulin 2.0 g/dL (1.3-4.6) 04/17/23 22:34 Radiology Impressions Chest X-Ray 04/17/23 22:47 IMPRESSION: 1. Negative for infiltrate. 2. Emphysematous changes. Recent Clincial Data Last Vital Signs Temp 97.9 F 04/18/23 23:46 Pulse 80 04/19/23 08:00 Resp 18 04/19/23 08:00 BP 150/90 04/19/23 08:00 Pulse Ox 94 04/19/23 08:00 O2 Del Method Room Air 04/19/23 08:00 Vital Signs Temp Pulse Resp BP Pulse Ox O2 Del Method 04/19/23 08:00 80 18 150/90 94 Room Air 04/19/23 06:20 78 17 128/99 04/19/23 06:15 128/99 04/19/23 06:10 128/99 04/19/23 06:05 76 22 H 128/99 04/19/23 06:00 72 16 107/71 04/19/23 05:55 72 8 L 107/71 04/19/23 05:50 71 15 107/71 04/19/23 05:45 79 17 107/71 04/19/23 05:40 74 16 107/71 04/19/23 05:35 72 7 L 107/71 04/19/23 05:30 76 15 107/71 04/19/23 05:25 72 10 L 107/71 04/19/23 05:20 74 8 L 107/71 04/19/23 05:15 77 10 L 107/71 04/19/23 05:10 70 9 L 107/71 04/19/23 05:05 78 9 L 107/71 04/19/23 05:00 69 15 107/71 04/19/23 04:55 71 14 107/71 04/19/23 04:50 71 16 107/71 04/19/23 04:45 71 15 107/71 04/19/23 04:40 70 13 107/71 04/19/23 04:35 78 15 107/71 04/19/23 04:30 75 15 107/71 04/19/23 04:25 77 10 L 107/71 04/19/23 04:20 72 24 H 107/71 04/19/23 04:15 72 16 107/71 04/19/23 04:10 71 18 107/71 04/19/23 04:05 78 17 107/71 04/19/23 04:00 72 10 L 107/71 04/19/23 03:55 75 5 L 107/71 04/19/23 03:50 76 15 107/71 04/19/23 03:45 72 6 L 107/71 04/19/23 03:40 73 8 L 107/71 04/19/23 03:35 71 21 H 107/71 04/19/23 03:30 72 8 L 107/71 04/19/23 03:25 84 11 L 107/71 04/19/23 03:20 73 7 L 107/71 04/19/23 03:15 73 6 L 107/71 04/19/23 03:10 74 10 L 107/71 04/19/23 03:05 73 5 L 107/71 04/19/23 03:00 73 3 L 107/71 04/19/23 02:55 78 8 L 107/71 04/19/23 02:50 74 15 107/71 04/19/23 02:45 76 12 107/71 04/19/23 02:40 71 3 L 107/71 04/19/23 02:35 67 6 L 107/71 04/19/23 02:30 75 14 107/71 04/19/23 02:25 76 12 107/71 04/19/23 02:20 75 13 107/71 04/19/23 02:15 74 14 107/71 04/19/23 05:44 75 04/18/23 23:46 97.9 F 78 18 107/71 96 Room Air Intake & Output/Weight 04/17/23 04/18/23 04/19/23 04/20/23 06:59 06:59 06:59 06:59 Intake Total 2278.333 / 2278.333 440 / 440 Output Total 0 / 0 Balance 0 / 0 2278.333 / 2278.333 440 / 440 Weight 63.911 kg 63.276 kg Vitals Last Vital Signs Temp 97.9 F 04/18/23 23:46 Pulse 80 04/19/23 08:00 Resp 18 04/19/23 08:00 BP 150/90 04/19/23 08:00 Pulse Ox 94 04/19/23 08:00 O2 Del Method Room Air 04/19/23 08:00 TS Medications Medications Acetaminophen (Acetaminophen 325 Mg Tablet) 650 mg PO Q6H PRN PRN Reason: Mild/Mod Pain Or Temp >/= 101 Al Hydrox/Mg Hydrox/Simethicone (Mrue-Zbm-Hstaoyquy-Aaron 30 Ml Udc) 30 ml PO Q15M PRN PRN Reason: INDIGESTION Aspirin (Aspirin 325 Mg Tablet) 325 mg PO DAILY YUNIOR Last Admin: 04/19/23 08:08 Dose: 325 mg Atropine Sulfate (Atropine 1 Mg/Ml Sdv 1 Ml) 0.5 mg IVP PRN PRN PRN Reason: Symptomatic bradycardia Dextrose (Dextrose 50% Syringe 50 Ml) 25 ml IVP ONCE PRN; Protocol PRN Reason: hypoglycemia protocol Dextrose (Dextrose 50% Syringe 50 Ml) 50 ml IVP PRN PRN; Protocol PRN Reason: hypoglycemia protocol Enoxaparin Sodium (Enoxaparin 60 Mg/0.6 Ml Syringe) 60 mg 1 mg/kg (60 mg) S UBCUT Q12H [facility] Last Admin: 04/19/23 06:03 Dose: 60 mg Fentanyl (Fentanyl 50 Mcg/Ml Inj 2ml) 50 mcg IVP PRN PRN PRN Reason: Prior to sheath removal Dextrose (D5w) 500 mls @ 100 mls/hr IV ONCE PRN; Protocol PRN Reason: Adult Acute Hypoglycemia Prot Sodium Chloride (Sodium Chloride 0.9%) 1,000 mls @ 100 mls/hr IV .Q10H [facility] Last Infusion: 04/19/23 05:06 Dose: Infused Insulin Human Lispro (Insulin Lispro 100 Unit/1 Ml) 0 unit SUBCUT WM&BEDTIME [facility]; Protocol Last Admin: 04/19/23 07:39 Dose: Not Given Magnesium Hydroxide (Magnesium Hydroxide 30 Ml Udc) 30 ml PO DAILY PRN PRN Reason: CONSTIPATION Naloxone HCl (Naloxone 0.4 Mg/Ml Sdv) 0.1 mg IVP Q2M PRN PRN Reason: RESPIRATORY RATE < 8/MIN Nicotine (Nicotine 21 Mg Patch) 1 patch TRANSDERMA DAILY PRN PRN Reason: NICOTINE CRAVINGS Nicotine Polacrilex (Nicotine 4 Mg Lozenge) 4 mg MUCOUS MEM Q4H PRN PRN Reason: NICOTINE CRAVINGS Nitroglycerin (Nitroglycerin 0.4 Mg Sublingual Tablet) 0.4 mg SUBLINGUAL Q5M PRN PRN Reason: CHEST PAIN Ondansetron HCl (Ondansetron 2 Mg/Ml Sdv 2 Ml) 4 mg IVP Q8H PRN PRN Reason: vomiting, or N/V if npo Pantoprazole Sodium (Pantoprazole Dr 40 Mg Tablet) 40 mg PO DAILY [facility] Last Admin: 04/19/23 08:08 Dose: 40 mg Temazepam (Temazepam 15 Mg Capsule) 15 mg PO BEDTIME PRN PRN Reason: INSOMNIA Discontinued Medications Aspirin (Aspirin 325 Mg Tablet) 325 mg PO ONCE ONE Stop: 04/18/23 13:27 Last Admin: 04/18/23 15:14 Dose: 325 mg Clopidogrel Bisulfate (Clopidogrel 75 Mg Tablet) 75 mg PO DAILY [facility] Last Admin: 04/18/23 08:39 Dose: 75 mg Diphenhydramine HCl (Diphenhydramine 50 Mg Capsule) 50 mg PO ONCE ONE Stop: 04/18/23 13:27 Last Admin: 04/18/23 15:13 Dose: 50 mg Enoxaparin Sodium (Enoxaparin 60 Mg/0.6 Ml Syringe) 60 mg SUBCUT ONCE ONE Stop: 04/18/23 01:06 Last Admin: 04/18/23 01:17 Dose: 60 mg Enoxaparin Sodium (Enoxaparin 100 Mg/Ml Syringe) 60 mg 1 mg/kg (60 mg) SUBCUT Q12H [facility] Fentanyl (Fentanyl 50 Mcg/Ml Inj 2ml) Confirm Administered Dose 100 mcg .ROUTE .STK-MED ONE Stop: 04/18/23 15:50 Heparin Sodium (Porcine) (Heparin 5,000 Unit/Ml Inj 1 Ml) Confirm Administered Dose 10,000 unit .ROUTE .STK-MED ONE Stop: 04/18/23 15:50 Sodium Chloride (Sodium Chloride 0.9%) 1,000 mls @ 50 mls/hr IV .Q20H ONE Stop: 04/19/23 09:25 Last Infusion: 04/19/23 06:36 Dose: Infused Lidocaine HCl (Xylocaine) Confirm Administered Dose 3 mls @ as directed .ROUTE .STK-MED ONE Stop: 04/18/23 15:50 Midazolam HCl (Midazolam 1 Mg/Ml Inj 2 Ml) Confirm Administered Dose 2 mg .ROUTE .STK-MED ONE Stop: 04/18/23 15:50 Nitroglycerin (Nitroglycerin 5 Mg/Ml Sdv 10 Ml) Confirm Administered Dose 50 mg .ROUTE .STK-MED ONE Stop: 04/18/23 15:49 Allergies No Known Allergies Allergy (Verified 04/14/23 12:50) Home Medications Levemir FlexTouch U-100 Insuln 50 unit SUBCUT DAILY 08/01/19 [History Confirmed 04/18/23] Trulicity See Rx Instructions .Route .COMPLEX 08/01/19 [History Confirmed 04/18/23] aspirin 81 mg tablet,delayed release 81 mg PO DAILY 08/01/19 [History Confirmed 04/18/23] bupropion HCl 150 mg 24 hr tablet, extended release 150 mg PO QAM 02/12/20 [History Confirmed 04/18/23] cyanocobalamin (vitamin B-12) 500 mcg tablet (Vitamin B-12) 500 mcg PO DAILY 08/01/19 [History Confirmed 04/18/23] ezetimibe 10 mg tablet 10 mg PO DAILY 08/01/19 [History Confirmed 04/18/23] insulin lispro 100 unit/mL subcutaneous pen (Humalog KwikPen (U-100) Insulin) 10 unit SUBCUT TID 08/01/19 [History Confirmed 04/18/23] omega-3 fatty acids 1,000 mg capsule 2,000 mg PO BID 08/01/19 [History Confirmed 04/18/23] rosuvastatin 40 mg tablet 40 mg PO DAILY 08/01/19 [History Confirmed 04/18/23] clopidogrel 75 mg tablet 75 mg PO DAILY #90 tabs 09/16/20 [Rx Confirmed 04/18/23] metoprolol tartrate 25 mg tablet 25 mg PO BID #60 tabs 12/30/20 [Rx Confirmed 04/18/23] [id number]-mjwctapqxlmqd-fhosiivk 50 mg-300 mg-40 mg capsule (Fioricet) 1 cap PO Q4H PRN headache #20 caps 05/19/22 [Rx Confirmed 04/18/23] naproxen sodium 550 mg tablet (Anaprox DS) 550 mg PO Q12H PRN pain #30 tabs 05/19/22 [Rx Confirmed 04/18/23] naproxen 500 mg tablet (Naprosyn) 500 mg PO BID PRN pain #20 tabs 06/20/22 [Rx Confirmed 04/18/23] amitriptyline 25 mg tablet 25 mg PO DAILY 04/14/23 [History Confirmed 04/18/23] Discharge Plan Discharge Patient Disposition: Home Condition: Stable Prescriptions: No Action amitriptyline 25 mg tablet 25 mg PO DAILY clopidogrel 75 mg tablet 75 mg PO DAILY Qty: 90 3RF metoprolol tartrate 25 mg tablet 25 mg PO BID Qty: 60 6RF omega-3 fatty acids 1,000 mg Capsule 2,000 mg PO BID aspirin 81 mg Tablet,Delayed Release (Dr/Ec) 81 mg PO DAILY cyanocobalamin (vitamin B-12) [Vitamin B-12] 500 mcg Tablet 500 mcg PO DAILY insulin lispro [Humalog KwikPen Insulin] 100 unit/mL Insulin Pen 10 unit SUBCUT TID ezetimibe 10 mg Tablet 10 mg PO DAILY rosuvastatin 40 mg Tablet 40 mg PO DAILY bupropion HCl 150 mg Tablet Extended Release 24 Hr 150 mg PO QAM Levemir FlexTouch U-100 Insuln 50 unit SUBCUT DAILY Trulicity See Rx Instructions .ROUTE .COMPLEX Rx Instructions: 0.5 mL subcutaneously weekly taken on Tuesday naproxen [Naprosyn] 500 mg tablet 500 mg PO BID PRN (Reason: pain) Qty: 20 0RF naproxen sodium [Anaprox DS] 550 mg tablet 550 mg PO Q12H PRN (Reason: pain) Qty: 30 0RF [id number] [Fioricet] 50-300-40 mg capsule 1 cap PO Q4H PRN (Reason: headache) Qty: 20 0RF Discharge Orders: Discharge Order (Routine); Ordered 04/19/23 Ordered By: Cristian Valadez Discharge Diet: Cardiac Discharge Activity: Increase activity as tolerated Patient Instructions: Opioid Safety Transfer Attestations Time Spent in Transfer Care: greater than 30 min Quality Metrics Clinical Quality Measures [ No reported AMI, CVA or VTE this stay] Coding Level of Care Code Acute Code for [facility] Diagnoses NSTEMI (non-ST elevated myocardial infarction) I21.4 Hypertension I10 Hypertension type: essential hypertension Hyperlipidemia E78.49 Hyperlipidemia type: other hyperlipidemia Diabetes E11.9 Coronary artery disease I25.10
[2023-04-19 11:25] LABS: Glucose Point of Care 194 mg/dL (70-110)
[2023-04-19] MEDS: insulin lispro 100 unit/1 mL SUBCUT (11:31)
--- NOTE | 2023-04-19 11:54 | PC.NURSE ---
Patient report is called to Katerine Zambrano RN at [facility]. [facility] came to transport patient to [facility] at 1156.
== END 2023-04-19 11:59 | disposition short-term general hospital (02) | DRG 282 ==
LOC: ER 23:29 → CSU 04-18 01:58
PROVIDERS: Emergency Medicine; Internal Medicine; Admitting Provider Internal Medicine; Emergency Provider Emergency Medicine; PCP Nurse Practitioner Family; Visit Provider Internal Medicine
PROC: 4A023N7 Measurement of Cardiac Sampling and Pressure, Left Heart, Percutaneous Approach (ICD-10-PCS; principal; 2023-04-18 16:30)
DX: I21.4 Non-ST elevation (NSTEMI) myocardial infarction (principal); F17.210 Nicotine dependence, cigarettes, uncomplicated; I25.10 Atherosclerotic heart disease of native coronary artery without angina pectoris; Z95.5 Presence of coronary angioplasty implant and graft; E78.5 Hyperlipidemia, unspecified; I10 Essential (primary) hypertension; I25.2 Old myocardial infarction; Z82.49 Family history of ischemic heart disease and other diseases of the circulatory system; E11.9 Type 2 diabetes mellitus without complications; Z79.85 Long-term (current) use of injectable non-insulin antidiabetic drugs
CPT/HCPCS: 36415; 36416; 71045; 80048; 80053; 82962; 83880; 84484; 85025; 93005; 93306; 93458; 96372; 96376; 99152; 99153; 99285; C1769; C1887; C1894; J1644; J1650; J1815; J2250; J3010; J3490; J7030; Q0163; Q9967

== ENCOUNTER 2024-08-13 14:28 | Emergency (ER) | payer MEDICARE, MEDICAID, SELFPAY ==
[2024-08-13 15:04] VITALS: BP 95/64; PULSE 86; RESP 18; TEMP 36.5; O2SAT 93
[2024-08-13 15:16] LABS: Glucose Point of Care 513 mg/dL (70-110)
--- NOTE | 2024-08-13 18:00 | W.ED.RECABL ---
HPI - Recheck/Abnormal Lab/Rx General: Chief Complaint: Recheck/Abnormal Lab/Rx Stated Complaint: abnormal labs? Time Seen by Provider: 08/13/24 17:50 Source: patient Mode of arrival: ambulatory Limitations: no limitations History of Present Illness: 64-year-old male with a history of diabetes states he seen his PCP today and the blood sugars over 500s had sent him here he has no complaints he states he has been feeling fine he has had no vomiting no diarrhea states his blood sugar does run high at times. Related Data Home Medications ?Medication ?Instructions ?Recorded ?Confirmed Levemir FlexTouch U-100 Insuln 50 unit SUBCUT DAILY 08/01/19 04/18/23 Trulicity See Rx Instructions .Route .COMPLEX 08/01/19 04/18/23 aspirin 81 mg tablet,delayed 81 mg PO DAILY 08/01/19 04/18/23 release bupropion HCl 150 mg 24 hr tablet, 150 mg PO QAM 08/01/19 04/18/23 extended release cyanocobalamin (vitamin B-12) 500 500 mcg PO DAILY 08/01/19 04/18/23 mcg tablet (Vitamin B-12) ezetimibe 10 mg tablet 10 mg PO DAILY 08/01/19 04/18/23 insulin lispro 100 unit/mL 10 unit SUBCUT TID 08/01/19 04/18/23 subcutaneous pen (Humalog KwikPen (U-100) Insulin) omega-3 fatty acids 1,000 mg 2,000 mg PO BID 08/01/19 04/18/23 capsule rosuvastatin 40 mg tablet 40 mg PO DAILY 08/01/19 04/18/23 amitriptyline 25 mg tablet 25 mg PO DAILY 04/14/23 04/18/23 Previous Rx's ?Medication ?Instructions ?Recorded clopidogrel 75 mg tablet 75 mg PO DAILY #90 tabs 09/16/20 metoprolol tartrate 25 mg tablet 25 mg PO BID #60 tabs 12/30/20 [id number]-xgsqbynbbaype-spbmvuzo 1 cap PO Q4H PRN headache #20 caps 05/19/22 50 mg-300 mg-40 mg capsule (Fioricet) naproxen sodium 550 mg tablet 550 mg PO Q12H PRN pain #30 tabs 05/19/22 (Anaprox DS) naproxen 500 mg tablet (Naprosyn) 500 mg PO BID PRN pain #20 tabs 06/20/22 Allergies Allergy/AdvReac Type Severity Reaction Status Date / Time No Known Allergies Allergy Verified 08/13/24 15:11 Review of Systems Const: Denies: fever(s), chills, body aches or change in appetite ENMT: Denies: throat pain or dental pain Card: Denies: chest pain Resp: Denies: dyspnea GI: Denies: abdominal pain, nausea, vomiting or diarrhea Musc: Denies: neck pain or back pain Skin/Breast: Denies: rash Neuro: Denies: headache(s) PFSH ED PFSH: Medical History Chest pain Presence of stent in left circumflex coronary artery Coronary artery disease NSTEMI (non-ST elevated myocardial infarction) Migraine headache Tobacco abuse Strongly encouraged cessation Hypertension Continue on metoprolol Diabetes Continue with home Trulicity Hyperlipidemia Continue rosuvastatin Surgical History History of orthopedic surgery L elbow surgery Family History Father CAD (coronary artery disease) Mother CAD (coronary artery disease) Social History Smoking and tobacco/nicotine status: current every day tobacco/nicotine user Quit status (tobacco/nicotine): has tried quititng Alcohol intake: current Alcohol intake frequency: holidays/special occasions only Physical Exam Const: COMMON NORMALS: no acute distress, patient oriented x3 and healthy appearing HENMT: COMMON NORMALS: normocephalic and atraumatic HEAD & SCALP: normocephalic and atraumatic Eye: COMMON NORMALS: conjunctivae normal CONJUNCTIVA: Yes conjunctivae normal Neck/C-Spine: COMMON NORMALS: full ROM and supple Chest: COMMONS NORMALS: normal inspection of the chest Resp: COMMON NORMALS: normal respiratory effort, No retractions, No use of accessory muscles and clear to auscultation bilaterally AUSCULTATION: clear to auscultation bilaterally Cardio: COMMON NORMALS: regular rate, regular rhythm and No murmurs present (Cardio) RATE: regular rate RHYTHM: regular rhythm Extremity: COMMON NORMALS: normal to inspection and full ROM Neuro: COMMON NORMALS: patient oriented x3, moves all extremities and no focal motor deficits Psych: COMMON NORMALS: mental status grossly normal, Normal thought process present and cooperative THOUGHT PROCESS: Normal thought process present Skin: COMMON NORMALS: no rashes or lesions noted and no wounds GENERAL SKIN EXAM: no rashes or lesions noted Course Vital Signs: Vital signs: Vital Signs Temperature 97.7 F 08/13/24 15:04 Pulse Rate 73 08/13/24 20:08 Respiratory Rate 19 H 08/13/24 20:00 Blood Pressure 116/71 08/13/24 20:08 Pulse Oximetry 95 08/13/24 20:08 Oxygen Delivery Me thod Room Air 08/13/24 19:30 MDM - Recheck/Abnormal Lab/Rx Medical Decision Making Patient presents with hyperglycemia is not in DKA his blood sugars improved he is to follow-up with PCP and return if worsening he understands agrees to plan. Medical Records I reviewed the patient's medical records. Lab Data I reviewed the patient's lab results. 08/13/24 18:19 08/13/24 18:19 Laboratory Results WBC 6.20 10^3/uL (3.29-11.43) 08/13/24 18:19 RBC 5.27 10^6/uL (3.85-5.65) 08/13/24 18:19 Hgb 14.40 g/dL (11.27-16.99) 08/13/24 18:19 Hct 43.4 % (37-53) 08/13/24 18:19 MCV 82.4 fl (82-101) 08/13/24 18:19 MCH 27.3 pg (27-33) 08/13/24 18:19 MCHC 33.2 g/dL (30-55) 08/13/24 18:19 RDW 12.1 % (12.1-15.1) 08/13/24 18:19 Plt Count 250 10^3/cmm (157-399) 08/13/24 18:19 MPV 11.2 fL (7.4-10.4) H 08/13/24 18:19 Neut % (Auto) 64.2 % 08/13/24 18:19 Lymph % (Auto) 28.7 % 08/13/24 18:19 [place] % (Auto) 4.2 % 08/13/24 18:19 Eos % (Auto) 2.1 % 08/13/24 18:19 Baso % (Auto) 0.5 % 08/13/24 18:19 Neut # (Auto) 3.98 10^3/uL (1.8-7.7) 08/13/24 18:19 Lymph # (Auto) 1.8 10^3/uL (0.8-4.8) 08/13/24 18:19 [place] # (Auto) 0.3 10^3/uL (0.2-0.9) 08/13/24 18:19 Eos # (Auto) 0.1 10^3/uL (0.0-0.8) 08/13/24 18:19 Baso # (Auto) 0.0 10^3/uL (0.0-0.1) 08/13/24 18:19 Nucleated RBC % (auto) 0 % 08/13/24 18:19 Nucleated RBCs # 0.0 /100WBC 08/13/24 18:19 Sodium 132 mmol/L (136-145) L 08/13/24 18:19 Potassium 4.5 mmol/L (3.5-5.1) 08/13/24 18:19 Chloride 92 mmol/L (98-107) L 08/13/24 18:19 Carbon Dioxide 29 mmol/L (22-29) 08/13/24 18:19 Anion Gap 15.5 (5-19) 08/13/24 18:19 BUN 29 mg/dL (8-23) H 08/13/24 18:19 Creatinine 1.4 mg/dL (0.7-1.2) H 08/13/24 18:19 GFR Calculation 50.9 mL/min (90-130) L 08/13/24 18:19 Glucose 413 mg/dL (65-115) H 08/13/24 18:19 POC Glucose 366 mg/dL (70-110) H 08/13/24 19:39 Calculated Osmolality 297 mOsm/kg (285-295) H 08/13/24 18:19 Calcium 9.8 mg/dL (8.5-10.5) 08/13/24 18:19 Total Bilirubin 0.4 mg/dL (0.15-1.2) 08/13/24 18:19 AST 15 U/L (0-40) 08/13/24 18:19 ALT 14 U/L (0-41) 08/13/24 18:19 Alkaline Phosphatase 142 U/L (40-130) H 08/13/24 18:19 Total Protein 7.3 g/dL (6.6-8.7) 08/13/24 18:19 Albumin 4.4 g/dL (3.5-5.2) 08/13/24 18:19 Globulin 2.9 g/dL (1.3-4.6) 08/13/24 18:19 No radiology studies performed this visit Discharge Plan Discharge Patient Disposition: Home Clinical Impression: Hyperglycemia Condition: Stable Prescriptions: No Action amitriptyline 25 mg tablet 25 mg PO DAILY clopidogrel 75 mg tablet 75 mg PO DAILY Qty: 90 3RF metoprolol tartrate 25 mg tablet 25 mg PO BID Qty: 60 6RF omega-3 fatty acids 1,000 mg Capsule 2,000 mg PO BID aspirin 81 mg Tablet,Delayed Release (Dr/Ec) 81 mg PO DAILY cyanocobalamin (vitamin B-12) [Vitamin B-12] 500 mcg Tablet 500 mcg PO DAILY insulin lispro [Humalog KwikPen Insulin] 100 unit/mL Insulin Pen 10 unit SUBCUT TID ezetimibe 10 mg Tablet 10 mg PO DAILY rosuvastatin 40 mg Tablet 40 mg PO DAILY bupropion HCl 150 mg Tablet Extended Release 24 Hr 150 mg PO QAM Levemir FlexTouch U-100 Insuln 50 unit SUBCUT DAILY Trulicity See Rx Instructions .ROUTE .COMPLEX Rx Instructions: 0.5 mL subcutaneously weekly taken on Tuesday naproxen [Naprosyn] 500 mg tablet 500 mg PO BID PRN (Reason: pain) Qty: 20 0RF naproxen sodium [Anaprox DS] 550 mg tablet 550 mg PO Q12H PRN (Reason: pain) Qty: 30 0RF [id number]-[id number] [Fioricet] 50-300-40 mg capsule 1 cap PO Q4H PRN (Reason: headache) Qty: 20 0RF Discharge Orders: Discharge ED (Routine); Ordered 08/13/24 Ordered By: Chase Juarez Referrals: Fabiola Gibson, [facility] [Primary Care Provider] - Discharge Diet: Advance as tolerated Discharge Activity: Resume usual activity Patient Instructions: Diabetic Hyperglycemia (ED) Print Language: Lithuanian Coding Level of Care Code ED Assembler for Anna Khan
[2024-08-13] MEDS: sodium chloride 0.9% 1,000 ML 999 ML IV (18:25)
[2024-08-13 18:32] LABS: Basophils % 0.5 %; Eosinophils # 0.1 10^3/uL (0.0-0.8); Eosinophils % 2.1 %; Hematocrit 43.4 % (37-53); Lymphocytes # 1.8 10^3/uL (0.8-4.8); Lymphocytes % 28.7 %; Mean Corpuscular HGB Conc 33.2 g/dL (30-55); Mean Corpuscular Hemoglobin 27.3 pg (27-33); Mean Corpuscular Volume 82.4 fl (82-101); Mean Platelet Volume 11.2 fL (7.4-10.4); Monocytes # 0.3 10^3/uL (0.2-0.9); Monocytes % 4.2 %; Neutrophils # 3.98 10^3/uL (1.8-7.7); Neutrophils % 64.2 %; Nucleated Red Blood Cells % 0 %; Platelet Count 250 10^3/cmm (157-399); Red Blood Count 5.27 10^6/uL (3.85-5.65); Red Cell Distribution Width 12.1 % (12.1-15.1)
[2024-08-13 18:39] LABS: Glucose Point of Care 421 mg/dL (70-110)
[2024-08-13 18:40] VITALS: BP 124/77; RESP 15; O2SAT 97
[2024-08-13 18:49] LABS: Alanine Aminotransferase 14 U/L (0-41); Albumin Level 4.4 g/dL (3.5-5.2); Alkaline Phosphatase 142 U/L (40-130); Anion Gap 15.5 (5-19); Aspartate Amino Transferase 15 U/L (0-40); Blood Urea Nitrogen 29 mg/dL (8-23); Calcium 9.8 mg/dL (8.5-10.5); Carbon Dioxide 29 mmol/L (22-29); Chloride 92 mmol/L (98-107); Creatinine Clr Calc Pharmacy 47.5699; Globulin 2.9 g/dL (1.3-4.6); Glomerular Filtration Rate 50.9 mL/min (90-130); Glucose 413 mg/dL (65-115); Osmolality Calculated 297 mOsm/kg (285-295); Potassium 4.5 mmol/L (3.5-5.1); Sodium 132 mmol/L (136-145); Total Bilirubin 0.4 mg/dL (0.15-1.2); Total Protein 7.3 g/dL (6.6-8.7)
[2024-08-13 19:00] VITALS: BP 122/80; PULSE 86; O2SAT 96
[2024-08-13] MEDS: insulin regular-human 100 units/1 mL 10 UNIT IVP (19:09)
[2024-08-13 19:30] VITALS: BP 116/76; PULSE 72; O2SAT 96
[2024-08-13 19:54] LABS: Glucose Point of Care 366 mg/dL (70-110)
[2024-08-13 20:00] VITALS: BP 116/71; PULSE 73; RESP 19; O2SAT 95
[2024-08-13 20:08] VITALS: BP 116/71; PULSE 73; O2SAT 95
== END 2024-08-13 20:09 | disposition home or self-care (01) ==
PROVIDERS: Emergency Provider Emergency Medicine; PCP Nurse Practitioner Family
DX: E11.65 Type 2 diabetes mellitus with hyperglycemia (principal); I10 Essential (primary) hypertension; E78.5 Hyperlipidemia, unspecified; I25.10 Atherosclerotic heart disease of native coronary artery without angina pectoris; Z72.0 Tobacco use; Z79.02 Long term (current) use of antithrombotics/antiplatelets; Z79.4 Long term (current) use of insulin; Z79.82 Long term (current) use of aspirin
CPT/HCPCS: 36415; 36416; 80053; 82962; 85025; 96374; 99284; J1815; J7030